=== PATIENT | female | born 1975 | race Caucasian/White ===

== ENCOUNTER 2020-10-06 13:11 | Outpatient (CLI) | payer OTHER, SELFPAY ==
--- NOTE | ~2020-10-06 | XR_ITS ---
EXAMINATION: XR chest 2V 10/06/2020 13:33 INDICATION: Cough. Covid. PROCEDURE: 2 view chest COMPARISON: 05/29/2019 FINDINGS: The lungs are clear. The cardiomediastinal silhouette is within normal limits. There are no pleural effusions. There is no pneumothorax suspected. IMPRESSION: 1: NO ACUTE CARDIOPULMONARY DISEASE. Reviewed, dictated and finalized at location A. 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
== END 2020-10-06 13:12 | disposition home or self-care (01) ==
LOC: ANHIMG 13:23
PROVIDERS: PCP Family Medicine; Visit Provider Nurse Practitioner
DX: R05 Cough (principal); Z86.16 Personal history of COVID-19
CPT/HCPCS: 71046

== ENCOUNTER 2020-10-07 17:51 | Emergency (ER) | payer OTHER, SELFPAY ==
--- NOTE | ~2020-10-07 | CT_ITS ---
EXAMINATION: CTA chest PE protocol DATE: 10/07/2020 19:19 INDICATION: Shortness of breath. Elevated d-dimer. TECHNIQUE: Computed tomography (CT) pulmonary angiogram of the chest was performed with 100 mL Omnipa que-350 intravenous contrast. Additional 3D reconstructions utilizing coronal maximum intensity proje ction (MIP) were performed. The dose-length product was 362.46 mGy-cm. COMPARISON: None FINDINGS: Excellent contrast opacification of the pulmonary arteries. No significant motion artifact. There is some streak artifact extending across the right main and right upper lobar pulmonary arteries in the immediate vicinity of the dense contrast in the superior vena cava. No pulmonary embolism identified. There are few scattered subtle groundglass opacities throughout both lungs. There is also more linea r mild discoid atelectasis in the lingula, right middle and bilateral lower lobes. No pleural effusio n or pneumothorax. Heart size is normal. Again seen is an Amplatz type atrial septal defect closure d evice in expected position at the atrial septum. No pericardial effusion. Thoracic aorta is normal in caliber with no dissection. No pathologically enlarged thoracic lymphadenopathy. Minimal thoracic sp ondylosis. IMPRESSION: 1. No pulmonary embolism. 2. A few scattered very subtle groundglass opacities throughout both lungs suspicious for COVID pneum onia. Reviewed, dictated and finalized at location A. EY DRIVER IMPRESSION: 1. No pulmonary embolism. 2. A few scattered very subtle groundglass opacities throughout both lungs susp icious for COVID pneumonia.
--- NOTE | ~2020-10-07 | XR_ITS ---
EXAMINATION: XR chest 2V DATE: 10/07/2020 18:33 INDICATION: 3 days of worsening shortness of breath TECHNIQUE: PA and lateral views of the chest were obtained. COMPARISON: Chest radiograph dated 10/06/2020 FINDINGS: The lungs remain clear with no focal airspace opacities, pulmonary edema, pleural effusion or pneumot horax. The cardiomediastinal silhouette is normal. Amplatz type atrial septal defect closure device w ith expected location and orientation. Mild thoracic and moderate upper lumbar spondylosis. Cholecyst ectomy clips in the right upper quadrant. IMPRESSION: 1. No acute cardiopulmonary disease. Reviewed, dictated and finalized at location A. CTOR PAYER
--- NOTE | 2020-10-07 17:55 | ECG_ITS ---
Measurements Intervals [place] Rate: 108 P: 72 PA: 200 QRS: 34 QRSD: 153 T: 98 QT: 371 QTc: 498 Interpretive Statements SINUS TACHYCARDIA BORDERLINE AV CONDUCTION DELAY POSSIBLE LEFT ATRIAL ENLARGEMENT LEFT BUNDLE BRANCH BLOCK BASELINE ARTIFACT- I, II, III, AVL, AVF, V6 ABNORMAL ECG Electronically Signed On 10-08-2020 7:09:47 ABE TEACHER by Fred Spring D.O.
[2020-10-07 17:56] VITALS: BP 154/101; PULSE 108; RESP 17; TEMP 36.7; O2SAT 100
[2020-10-07 17:58] VITALS: PULSE 112
[2020-10-07 17:59] VITALS: O2SAT 100
[2020-10-07 18:15] LABS: Basophils Absolute Auto 0.1 K/mm3 (0.0-0.1); Basophils Percent Auto 0.8 % (0.2-1.2); Eosinophils Absolute Auto 0.2 K/mm3 (0-0.3); Eosinophils Percent Auto 2.2 % (0-4.4); Hematocrit 44.9 % (37.0-47.0); Hemoglobin 15.9 g/dL (12.0-15.0); Immature Granulocyte Absolute 0.05 K/mm3 (0.00-0.031); Immature Granulocyte Percent A 0.6 % (0-0.5); Lymphocytes Absolute Auto 2.45 K/mm3 (0.9-3.2); Lymphocytes Percent Auto 31.8 % (18.3-44.2); Mean Corpuscular HGB Conc 35.4 g/dl (32-36); Mean Corpuscular Hemoglobin 31.2 pg (26-34); Mean Platelet Volume 10.1 fl (7.4-10.4); Monocytes Absolute Auto 0.7 K/mm3 (0.1-0.6); Monocytes Percent Auto 8.9 % (2.6-8.5); Neutrophils Absolute Auto 4.3 K/mm3 (1.3-6.7); Neutrophils Percent Auto 55.7 % (45.5-73.1); Platelet Count Result 266 k/mm3 (150-375); Red Cell Distribution Width 11.3 % (11.5-14.5); White Blood Count 7.7 K/mm3 (4.5-10.0)
--- NOTE | 2020-10-07 18:23 | ED.SOB ---
HPI - SOB/Dyspnea General Chief Complaint: Shortness of Breath/Dyspnea Stated Complaint: diff breathing Time Seen by Provider: 10/07/20 18:21 Source: patient Mode of arrival: ambulatory Limitations: no limitations History of Present Illness HPI Narrative: Patient is a 45-year-old female complain of shortness of breath that started 3 days ago. Patient states of present of breath is worse with exertion. Patient denies any chest pain abdominal pain, nausea, vomiting, diarrhea, fever or chills. Patient states she has a septal defect and has Amplatzer cribriform occluder. Patient states that she was diagnosed with Covid 2 weeks ago and was cleared yesterday. Related Data Allergies Allergy/AdvReac Type Severity Reaction Status Date / Time Penicillins Allergy Intermediate Hives / Verified 10/07/20 17:59 Red Face Review of Systems Review of Systems: All systems reviewed & are unremarkable except as noted in HPI and below Constitutional: Constitutional: Denies body ache(s), Denies chills, Denies excessive sweating, Denies fatigue, Denies fever(s), Denies headache(s), Denies lethargy, Denies malaise, Denies weakness and Denies weight loss Eyes: Eyes: Denies blurry vision, Denies change in vision and Denies loss of vision ENT: Denies dizziness, Denies ear discharge, Denies headache(s), Denies lip swelling, Denies epistaxis, Denies nasal congestion, Denies neck pain, Denies throat swelling and Denies tongue swelling Cardiovascular: Cardiovascular: Denies chest pain, Denies chest pain at rest, Denies chest pain with activity, Denies diaphoresis, Denies rapid heart rate, Denies edema, Denies irregular heart rhythm, Denies lightheadedness and Denies palpitations Respiratory: Respiratory: Denies chest congestion, Denies cough and Denies hemoptysis Gastrointestinal: Gastrointestinal: Denies abdominal pain, Denies melena, Denies hematochezia, Denies diarrhea, Denies nausea, Denies vomiting and Denies hematemesis Musculoskeletal: Musculoskeletal: Denies abnormal gait, Denies deformity, Denies joint swelling, Denies limited range of motion, Denies neck pain and Denies numbness Neurologic: Denies Abnormal speech present, Denies abnormal gait, Denies confusion, Denies dizziness, Denies headache(s), Denies focal weakness, Denies loss of vision, Denies numbness, Denies Other visual disturbances, Denies Sensory deficit (Neuro) and Denies weakness Psychiatric: Psychiatric: Denies confusion, Denies depression, Denies auditory hallucinations, Denies homicidal ideation and Denies suicidal ideation Endocrine: Endocrine: Denies cold intolerance, Denies excessive sweating, Denies fatigue, Denies heat intolerance and Denies palpitations Hematologic/Lymphatic: Hematologic/Lymphatic: Denies easy bleeding and Denies easy bruising Allergic/Immunologic: Allergic/Immunologic: Denies lip swelling, Denies throat swelling and Denies tongue swelling PMFSH Past Medical History Medical History Bipolar disorder with depression Bipolar disorder, unspecified Essential (primary) hypertension Insomnia related to another mental disorder Other and unspecified hyperlipidemia Surgical History Surgical History H/O atrial septal defect repair (~2012) S/P ACL repair (~2013) left: meniscus and ACL repair S/P appendectomy (~2013) S/P cataract extraction (~2019) S/P cholecystectomy (~2009) S/P hysterectomy (~2006) Status post ORIF of fracture of ankle (~2016) Family History Family History Mother Hypertension Grandparent Family history of congestive heart failure Family history of hypercholesterolemia Social History Social History Smoking status: Never smoker Second hand tobacco smoke exposure: No Substance use: never Gender identity (if verbaliz
[2020-10-07 18:25] LABS: Anion Gap 11 mmol/L (8-16); Blood Urea Nitrogen 13 mg/dL (7-17); Calcium 9.6 mg/dL (8.4-10.2); Carbon Dioxide 24 mmol/L (22-30); Chloride 105 mmol/L (98-107); Estimated CRCL calculation 67 ml/min; Estimated Glomerular Filt Rate 59; Glucose 100 mg/dL (65-105); Potassium 3.5 mmol/L (3.4-5.0); Sodium 140 mmol/L (137-145)
[2020-10-07 18:46] LABS: D Dimer 0.99 ug/mL (<0.48)
[2020-10-07 18:53] LABS: NT Pro B Type Natriuretic Pept 32 PG/ML (5-100); Troponin I < 0.012 ng/mL (0.000-0.034)
[2020-10-07 19:02] VITALS: BP 132/84; PULSE 92; RESP 18; O2SAT 100
[2020-10-07 20:00] VITALS: BP 117/87; PULSE 94; RESP 14; O2SAT 100
[2020-10-07 21:15] VITALS: BP 125/83; PULSE 78; RESP 11; TEMP 37.2; O2SAT 100
== END 2020-10-07 21:16 | disposition home or self-care (01) ==
PROVIDERS: Emergency Provider Emergency Medicine; PCP Family Medicine
DX: U07.1 COVID-19 (principal); J12.82 Pneumonia due to coronavirus disease 2019; I10 Essential (primary) hypertension; E78.5 Hyperlipidemia, unspecified; Z98.49 Cataract extraction status, unspecified eye; R00.0 Tachycardia, unspecified; I44.7 Left bundle-branch block, unspecified; R94.31 Abnormal electrocardiogram [ECG] [EKG]
CPT/HCPCS: 36415; 71046; 71275; 80048; 83880; 84484; 85025; 85380; 93005; 96374; 99284; J1100; Q9967

== ENCOUNTER → 2022-05-29 09:57 | Outpatient (CLI) | payer BC, SELFPAY ==
--- NOTE | ~2022-05-29 | XR_ITS ---
EXAMINATION: XR knee RT 2V DATE: 05/29/2022 10:10 INDICATION: Right knee pain. TECHNIQUE: 2 views of right knee were obtained. COMPARISON: None. FINDINGS: Bone alignment is normal. No fracture. There is mild tricompartmental osteoarthritis charac terized by tiny osteophytes. No joint space narrowing. No knee joint effusion. IMPRESSION: 1. Mild right knee osteoarthritis. Reviewed, dictated and finalized at location A.
--- NOTE | ~2022-05-29 | XR_ITS ---
EXAMINATION: HAND-CHRISTIAN ARTHRITIS 3+VIEWS DATE: 05/29/2022 10:10 INDICATION: Bilateral hand pain TECHNIQUE: Posteroanterior, lateral, and oblique views of the left and of the right hands as well as a ballcatchers view of both hands were obtained. COMPARISON: None. FINDINGS: Normal alignment at the bilateral hands and wrists. No fractures. Roughly symmetric pattern of mild t o moderate polyarticular osteoarthritis most prominent at the bilateral first carpometacarpal and sev eral distal interphalangeal joints and to a lesser degree at the metacarpophalangeal and remaining in terphalangeal joints. No erosions to suggest an inflammatory arthritis. Soft tissues are unremarkable . IMPRESSION: 1. Mild to moderate polyarticular osteoarthritis with typical distribution at the bilateral hands. Reviewed, dictated and finalized at location A. IMPRESSION: 1. Mild to moderate polyarticular osteoarthritis with typical distribution at t he bilateral hands.
== END ==
PROVIDERS: PCP Nurse Practitioner Family; Visit Provider Nurse Practitioner Family
DX: M19.041 Primary osteoarthritis, right hand (principal); M19.042 Primary osteoarthritis, left hand; M17.11 Unilateral primary osteoarthritis, right knee
CPT/HCPCS: 73130; 73560

== ENCOUNTER 2022-06-12 09:20 | Emergency (ER) | payer BC, SELFPAY ==
[2022-06-12] VITALS (14 sets, daily range): BP systolic 110–119; BP diastolic 70–83; PULSE 76–117; RESP 11–22; TEMP 36.6; O2SAT 90–98
--- NOTE | ~2022-06-12 | CT_ITS ---
EXAMINATION: CTA chest PE protocol DATE: 06/12/2022 11:14 INDICATION: Chest pain, tachycardia. Elevated d-dimer. TECHNIQUE: Computed tomography angiography (CTA) of the chest was performed with 100 mL Omnipaque-350 intravenous contrast timed to evaluate the pulmonary arteries. Coronal maximum intensity projection 3D-reconstructions were created by the technologist. Automated exposure control and iterative reconst ruction technique were employed. Exam dose: 367.52 mGy-cm total exam DLP. COMPARISON: 06/12/2022 portable AP chest 10/07/2020 CT pulmonary scan FINDINGS: There is diagnostic contrast enhancement of the pulmonary arteries and no evidence of pulmo nary embolism. No hilar or mediastinal mass lesion or lymphadenopathy. Normal heart size. No pericardial or pleural effusion. The lungs are clear of infiltrate or consolidation. Status post cholecystectomy. Stable approximately 1.4 cm hepatic cyst since 05/29/2019. Included skeletal structures are unremarkable. IMPRESSION: No evidence of pulmonary embolism Reviewed, dictated and finalized at Location A. Reviewed, dictated and finalized at location A.
--- NOTE | ~2022-06-12 | XR_ITS ---
EXAMINATION: XR chest 1V portable INDICATION: Chest pain and weakness TECHNIQUE: Portable AP chest at 1041 hours COMPARISON: 10/07/2020 FINDINGS: There is mild atelectasis of the lung bases. No pleural effusion or pneumothorax. The cardi omediastinal silhouette is normal. IMPRESSION: 1. Mild atelectasis of the lung bases. Reviewed, dictated and finalized at location B.
--- NOTE | 2022-06-12 09:26 | ECG_ITS ---
Measurements Intervals [place] Rate: 119 P: 58 MT: 184 QRS: -17 QRSD: 152 T: 99 QT: 347 QTc: 489 Interpretive Statements SINUS TACHYCARDIA POSSIBLE LEFT ATRIAL ENLARGEMENT LEFT BUNDLE BRANCH BLOCK COMPARED TO ECG 10/07/2020 18:05:17 NO SIGNIFICANT CHANGES Electronically Signed On 06-12-2022 21:19:17 CDT by Fred Spring D.O.
--- NOTE | 2022-06-12 10:03 | ED.CHESTPAIN ---
HPI - Chest Pain General Chief Complaint: Chest Pain Stated Complaint: chest pain Time Seen by Provider: 06/12/22 09:27 Source: patient, EMS and RN notes reviewed Mode of arrival: EMS Limitations: no limitations History of Present Illness HPI narrative: This is a 46 year old female with history of Bipolar who presents for evaluation of chest pain. PAtient states she was getting ready for works when she started to feel unwell. She felt like her heart was racing and she developed chest pain across her chest. She took additional metoprol to see if that would help her symptoms. She states her chest pain is still present. She describes pain has warm feeling across her chest . She denies associated nausea, vomiting, or shortness of breath. She reports mild dizziness. She had history of ASD repair years ago. She has also been having uncontrollable body tremors since episode started. Related Data Home Medications Medication Instructions Recorded Confirmed aspirin 325 mg tablet 325 mg PO DAILY 12/11/20 05/29/22 Allergies Allergy/AdvReac Type Severity Reaction Status Date / Time Penicillins Allergy Intermediate Hives / Verified 06/12/22 09:38 Red Face Review of Systems Review of Systems: All systems reviewed & are unremarkable except as noted in HPI and below Constitutional: Constitutional: Denies chills, Reports fatigue and Denies fever(s) ENT: Denies nasal congestion and Denies sore throat Cardiovascular: Cardiovascular: Reports chest pain and Reports rapid heart rate Respiratory: Respiratory: Denies chest congestion, Denies cough, Denies dyspnea and Denies wheezing Gastrointestinal: Gastrointestinal: Denies abdominal pain, Denies bloating, Denies nausea and Denies vomiting Psychiatric: Psychiatric: Denies anxiety and Denies depression [facility] Past Medical History Medical History (Updated 06/12/22 @ 14:00 by Ban Reagan MD) Anxiety Bipolar disorder with depression Essential (primary) hypertension History of COVID-19 Insomnia related to another mental disorder Other and unspecified hyperlipidemia Pneumonia due to 2019 novel coronavirus Right knee pain Surgical History Surgical History H/O atrial septal defect repair (~2012) History of surgical removal of 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 (~11/2021) S/P ACL repair (~2013) left: meniscus and ACL repair S/P appendectomy (~2013) S/P cataract extraction (~2019) S/P cholecystectomy (~2009) S/P hysterectomy (~2006) Status post ORIF of fracture of ankle (~2016) Family History Family History Mother Hypertension Grandparent Family history of congestive heart failure Family history of hypercholesterolemia Grandparent Rheumatoid arthritis Social History Social History (Updated 05/29/22 @ 09:32 by Winnie Cuevas) Social History: Caffeine- daily Smoking status: Never smoker Second hand tobacco smoke exposure: No Alcohol intake: never Substance use: never Gender identity (if verbalized by the patient): Female Exam Const: General: alert Orientation/consciousness: patient oriented x3 Other: Tremulous, anxious HENMT: Head: normal to inspection Face and sinus: normal facial exam Mouth: Yes Normal oral and palatal mucosa present Throat: posterior oropharynx normal Eyes: EOM: EOMs intact bilaterally Chest: Chest palpation & inspection: normal inspection of the chest Resp: Effort & Inspection: normal respiratory effort Auscultation: clear to auscultation bilaterally Cardio: Rate: tachycardic Rhythm: regular rhythm Heart sounds: no murmurs GI: GI Palp: Yes Soft to palpation, No Tenderness to palpation present (GI), No Guarding due to palpation present (GI) and No Rigid due to palpation Auscultation: normal bowel sounds Skin: General skin exam: normal color Neuro: General: patient oriented x3, m
[2022-06-12] MEDS: diazePAM INJ (*CRX) 10 MG/2 ML SYRINGE 5 MG IV PUSH (10:14)
[2022-06-12 10:17] LABS: Basophils Absolute Auto 0.1 K/mm3 (0.0-0.1); Eosinophils Absolute Auto 0.2 K/mm3 (0-0.3); Eosinophils Percent Auto 2.4 % (0-4.4); Hematocrit 42.9 % (37.0-47.0); Hemoglobin 14.8 g/dL (12.0-15.0); Immature Granulocyte Absolute 0.02 K/mm3 (0.00-0.031); Immature Granulocyte Percent A 0.3 % (0-0.5); Lymphocytes Absolute Auto 1.27 K/mm3 (0.9-3.2); Lymphocytes Percent Auto 20.7 % (18.3-44.2); Mean Corpuscular HGB Conc 34.5 g/dl (32-36); Mean Corpuscular Volume 89.7 fl (80-100); Mean Platelet Volume 10.9 fl (7.4-10.4); Monocytes Absolute Auto 0.4 K/mm3 (0.1-0.6); Monocytes Percent Auto 6.3 % (2.6-8.5); Neutrophils Absolute Auto 4.3 K/mm3 (1.3-6.7); Neutrophils Percent Auto 69.3 % (45.5-73.1); Platelet Count Result 195 k/mm3 (150-375); Red Blood Count 4.78 M/mm3 (4.2-5.4); Red Cell Distribution Width 12.2 % (11.5-14.5); White Blood Count 6.2 K/mm3 (4.5-10.0)
--- NOTE | 2022-06-12 10:20 | PC.NURSE ---
patient took aspirin prior to arrival. aware, OK to cancel protocol ASA
[2022-06-12 10:28] LABS: Alanine Aminotransferase 22 U/L (6-35); Albumin Level 4.6 g/dL (3.5-5.1); Alkaline Phosphatase 63 U/L (38-126); Anion Gap 15 mmol/L (8-16); Aspartate Amino Transferase 24 U/L (14-36); Bilirubin,Total 0.3 mg/dL (0.2-1.3); Blood Urea Nitrogen 10 mg/dL (7-17); Calcium 8.8 mg/dL (8.4-10.2); Carbon Dioxide 18 mmol/L (22-30); Chloride 105 mmol/L (98-107); Estimated CRCL calculation 66 ml/min; Estimated Glomerular Filt Rate 59; Glucose 105 mg/dL (65-110); Lipase 79 U/L (23-300); Potassium 3.6 mmol/L (3.4-5.0); Sodium 138 mmol/L (137-145)
[2022-06-12 10:30] LABS: Prothrombin Time 12.6 Seconds (11.1-14.7)
[2022-06-12 10:31] LABS: Partial Thromboplastin Time 29.2 SECONDS (22.3-36.8)
[2022-06-12 10:40] LABS: Troponin I < 0.012 ng/mL (0.000-0.034)
[2022-06-12 10:52] LABS: D Dimer 0.92 ug/mL (<0.48)
--- NOTE | 2022-06-12 11:12 | PC.NURSE ---
Pt off floor to radiology.
[2022-06-12 11:17] LABS: Creatine Kinase 100 U/L (30-135); Magnesium 1.8 mg/dL (1.6-2.3)
[2022-06-12 13:09] LABS: Troponin I 0.014 ng/mL (0.000-0.034)
== END 2022-06-12 14:16 | disposition home or self-care (01) ==
PROVIDERS: Emergency Provider General Practice; PCP Nurse Practitioner Family
DX: R07.9 Chest pain, unspecified (principal); R00.0 Tachycardia, unspecified; I10 Essential (primary) hypertension; E78.5 Hyperlipidemia, unspecified; Z98.49 Cataract extraction status, unspecified eye; Z90.710 Acquired absence of both cervix and uterus; Z85.828 Personal history of other malignant neoplasm of skin; Z87.01 Personal history of pneumonia (recurrent); Z86.16 Personal history of COVID-19; Z79.82 Long term (current) use of aspirin; F31.9 Bipolar disorder, unspecified; F41.9 Anxiety disorder, unspecified; F51.05 Insomnia due to other mental disorder
CPT/HCPCS: 36415; 71045; 71275; 80053; 82550; 83690; 83735; 84484; 85025; 85380; 85610; 85730; 93005; 96374; 99284; J3360; Q9967

== ENCOUNTER 2023-07-27 08:51 | Outpatient (CLI) | payer BC, SELFPAY ==
[2023-07-27 18:33] LABS: Alanine Aminotransferase 33 U/L (6-35); Albumin Level 4.3 g/dL (3.5-5.1); Alkaline Phosphatase 64 U/L (38-126); Anion Gap 6 mmol/L (8-16); Aspartate Amino Transferase 42 U/L (14-36); Bilirubin,Total 0.6 mg/dL (0.2-1.3); Blood Urea Nitrogen 16 mg/dL (7-17); Carbon Dioxide 28 mmol/L (22-30); Chloride 104 mmol/L (98-107); Cholesterol 190 mg/dL (0-200); Estimated Glomerular Filt Rate 59; Glucose 99 mg/dL (65-110); HDL Direct 47 mg/dL; Sodium 138 mmol/L (137-145); Triglycerides 150 mg/dL (<150)
[2023-07-27 18:44] LABS: LDL Cholesterol Direct 90 mg/dL
[2023-07-27 19:12] LABS: Basophils Percent Auto 0.7 % (0.2-1.2); Eosinophils Absolute Auto 0.2 K/mm3 (0-0.3); Eosinophils Percent Auto 3.1 % (0-4.4); Hematocrit 45.4 % (37.0-47.0); Immature Granulocyte Absolute 0.01 K/mm3 (0.00-0.031); Immature Granulocyte Percent A 0.2 % (0-0.5); Lymphocytes Percent Auto 34.6 % (18.3-44.2); Mean Corpuscular Hemoglobin 31.6 pg (26-34); Mean Corpuscular Volume 95.8 fl (80-100); Mean Platelet Volume 10.9 fl (7.4-10.4); Monocytes Absolute Auto 0.2 K/mm3 (0.1-0.6); Monocytes Percent Auto 4.4 % (2.6-8.5); Neutrophils Absolute Auto 3.1 K/mm3 (1.3-6.7); Platelet Count Result 233 k/mm3 (150-375); Red Blood Count 4.74 M/mm3 (4.2-5.4); Red Cell Distribution Width 12.2 % (11.5-14.5); White Blood Count 5.5 K/mm3 (4.5-10.0)
[2023-07-27 20:17] LABS: Hemoglobin A1C 4.9 % (<5.7)
== END 2023-07-27 08:52 | disposition home or self-care (01) ==
LOC: ANHGOSHLAB 08:53
PROVIDERS: PCP Family Medicine; Visit Provider Nurse Practitioner Family
DX: Z00.00 Encounter for general adult medical examination without abnormal findings (principal); I10 Essential (primary) hypertension; Z13.29 Encounter for screening for other suspected endocrine disorder; Z13.220 Encounter for screening for lipoid disorders; Z13.1 Encounter for screening for diabetes mellitus
CPT/HCPCS: 36415; 80053; 80061; 83036; 84443; 85025

== ENCOUNTER 2023-10-19 10:57 | Outpatient (CLI) | payer BC, SELFPAY ==
[2023-10-19 14:59] LABS: Influenza A QL RT-PCR Positive (Negative); Influenza B QL RT-PCR Negative (Negative); RSV RNA, RT-PCR Negative (Negative); SARS-CoV-2 RNA PCR Negative (Negative)
[2023-10-19 15:20] LABS: Strep Group A RT-PCR NOT DETECTED (Negative)
== END 2023-10-19 10:58 | disposition home or self-care (01) ==
LOC: ANHGOSHLAB 10:58
PROVIDERS: PCP Family Medicine; Visit Provider Nurse Practitioner Family
DX: R69 Illness, unspecified (principal); Z20.822 Contact with and (suspected) exposure to COVID-19
CPT/HCPCS: 87637; 87651

== ENCOUNTER → 2023-10-27 16:20 | Outpatient (CLI) | payer BC, SELFPAY ==
--- NOTE | ~2023-10-27 | XR_ITS ---
EXAMINATION: XR hand RT 2V, XR hand LT 2V DATE: 10/27/2023 16:31 INDICATION: Polyarthralgia the bilateral hands TECHNIQUE: 1. Posteroanterior and lateral views of the left hand were obtained. 2. Posteroanterior and lateral views of the right hand were obtained. COMPARISON: None. FINDINGS: Normal alignment at the bilateral hands and wrists. No fractures. Polyarticular osteoarthritis at the bilateral hands, severe at the left second and third distal interphalangeal joints, moderate severit y at the left fourth and fifth and right second and third distal interphalangeal joints and at the ri ght first carpometacarpal joint and mild at the left first carpometacarpal, remaining bilateral inter phalangeal joints and many of the bilateral metacarpophalangeal joints. No erosions to suggest inflam matory arthritis. Soft tissues are unremarkable. IMPRESSION: 1. Relatively symmetric pattern of polyarticular osteoarthritis at the bilateral hands, moderate to s evere at the bilateral distal interphalangeal joints. Reviewed, dictated and finalized at location A. MACHINE OPERATOR IMPRESSION: 1. Relatively symmetric pattern of polyarticular osteoarthritis at the bilatera l hands, moderate to severe at the bilateral distal interphalangeal joints.
== END ==
PROVIDERS: PCP Nurse Practitioner Family; Visit Provider Physician Assistant Medical
DX: M19.041 Primary osteoarthritis, right hand (principal); M19.042 Primary osteoarthritis, left hand
CPT/HCPCS: 73120

== ENCOUNTER 2024-01-06 11:22 | Outpatient (CLI) | payer BC, SELFPAY ==
[2024-01-06 12:10] LABS: Basophils Absolute Auto 0.1 K/mm3 (0.0-0.1); Basophils Percent Auto 1.3 % (0.2-1.2); Eosinophils Absolute Auto 0.2 K/mm3 (0-0.3); Eosinophils Percent Auto 3.3 % (0-4.4); Hematocrit 47.7 % (37.0-47.0); Hemoglobin 15.6 g/dL (12.0-15.0); Immature Granulocyte Absolute 0.02 K/mm3 (0.00-0.031); Immature Granulocyte Percent A 0.4 % (0-0.5); Lymphocytes Absolute Auto 1.42 K/mm3 (0.9-3.2); Lymphocytes Percent Auto 25.7 % (18.3-44.2); Mean Corpuscular HGB Conc 32.7 g/dl (32-36); Mean Corpuscular Hemoglobin 30.7 pg (26-34); Mean Corpuscular Volume 93.9 fl (80-100); Mean Platelet Volume 10.6 fl (7.4-10.4); Monocytes Absolute Auto 0.4 K/mm3 (0.1-0.6); Monocytes Percent Auto 7.8 % (2.6-8.5); Neutrophils Absolute Auto 3.4 K/mm3 (1.3-6.7); Neutrophils Percent Auto 61.5 % (45.5-73.1); Platelet Count Result 210 k/mm3 (150-375); Red Blood Count 5.08 M/mm3 (4.2-5.4); Red Cell Distribution Width 12.1 % (11.5-14.5); White Blood Count 5.5 K/mm3 (4.5-10.0)
[2024-01-06 17:56] LABS: Vitamin D 25 Hydroxy 37.4 ng/mL
[2024-01-06 20:10] LABS: Alanine Aminotransferase 29 U/L (6-35); Albumin Level 4.7 g/dL (3.5-5.1); Alkaline Phosphatase 71 U/L (38-126); Anion Gap 9 mmol/L (4-12); Aspartate Amino Transferase 45 U/L (14-36); Bilirubin,Total 0.7 mg/dL (0.2-1.3); Blood Urea Nitrogen 16 mg/dL (7-17); Calcium 9.6 mg/dL (8.4-10.2); Carbon Dioxide 24 mmol/L (22-30); Chloride 106 mmol/L (98-107); Cholesterol 252 mg/dL (0-200); Estimated Glomerular Filt Rate 59; Glucose 107 mg/dL (65-110); HDL Direct 58 mg/dL; Sodium 139 mmol/L (137-145); Triglycerides 140 mg/dL (<150)
[2024-01-06 20:23] LABS: LDL Cholesterol Direct 153 mg/dL
[2024-01-06 22:24] LABS: Hemoglobin A1C 4.9 % (<5.7)
== END 2024-01-06 11:23 | disposition home or self-care (01) ==
LOC: ANHGOSHLAB 11:23
PROVIDERS: PCP Nurse Practitioner Family; Visit Provider Nurse Practitioner Family
DX: E53.8 Deficiency of other specified B group vitamins (principal); F31.9 Bipolar disorder, unspecified; I10 Essential (primary) hypertension; M79.641 Pain in right hand; M79.642 Pain in left hand; R20.0 Anesthesia of skin; R20.2 Paresthesia of skin; R20.9 Unspecified disturbances of skin sensation; Z13.29 Encounter for screening for other suspected endocrine disorder; E55.9 Vitamin D deficiency, unspecified; Z00.00 Encounter for general adult medical examination without abnormal findings; E78.5 Hyperlipidemia, unspecified; R73.03 Prediabetes
CPT/HCPCS: 36415; 80053; 80061; 82306; 82607; 83036; 84443; 85025

== ENCOUNTER 2024-02-22 12:30 | Outpatient (CLI) | payer BC, SELFPAY ==
--- NOTE | 2024-02-22 14:00 | NEURO_ITS ---
Impression: # Complains of numbness of right hand. Non-diabetic. # Right ulnar neuropathy across the elbow,of moderate degree. # No Carpal Tunnel Syndrome. # Needle/EMG exam mildly abnormal,in abductor digiti minimi. Nerve Conduction Studies Anti Sensory Summary Table Stim Site NR Peak (ms) P-T Amp (?V) Site1 Site2 Delta-P (ms) Dist (cm) Jake (m/s) Left Median Anti Sensory (2-3nd Digit) Wrist 2.8 59.6 Wrist 2-3nd Digit 2.8 14.0 50 Wrist 2.8 63.4 Wrist 2-3nd Digit 2.8 14.0 50 Right Median Anti Sensory (2-3nd Digit) Wrist 2.6 56.5 Wrist 2-3nd Digit 2.6 14.0 54 Wrist 2.5 77.4 Wrist 2-3nd Digit 2.6 14.0 54 Left Radial Anti Sensory (Base 1st Digit) Wrist 2.2 32.0 Wrist Base 1st Digit 2.2 0.0 Right Radial Anti Sensory (Base 1st Digit) Wrist 2.6 28.4 Wrist Base 1st Digit 2.6 0.0 Left Ulnar Anti Sensory (5th Digit) Wrist 2.6 43.9 Wrist 5th Digit 2.6 14.0 54 Right Ulnar Anti Sensory (5th Digit) Wrist 2.3 79.9 Wrist 5th Digit 2.3 14.0 61 Motor Summary Table Stim Site NR Onset (ms) O-P Amp (mV) Site1 Site2 Delta-0 (ms) Dist (cm) Jake (m/s) Left Median Motor (Abd Poll Brev) Wrist 2.4 7.3 Elbow Wrist 5.3 31.0 58 Elbow 7.7 4.0 Right Median Motor (Abd Poll Brev) Wrist 2.5 4.6 Elbow Wrist 4.9 26.0 53 Elbow 7.4 4.2 Left Ulnar Motor (Abd Dig Minimi) Wrist 2.2 7.7 A Elbow Wrist 4.8 28.0 58 A Elbow 7.0 6.4 Right Ulnar Motor (Abd Dig Minimi) Wrist 2.5 6.6 A Elbow Wrist 5.9 27.0 46 A Elbow 8.4 4.4 B Elbow Wrist 3.4 20.0 59 B Elbow 5.9 4.9 F Wave Studies NR F-Lat (ms) L-R F-Lat (ms) Left Median (Mrkrs) (Abd Poll Brev) 27.29 0.41 Right Median (Mrkrs) (Abd Poll Brev) 26.89 0.41 Left Ulnar (Mrkrs) (Abd Dig Min) 27.60 0.10 Right Ulnar (Mrkrs) (Abd Dig Min) 27.70 0.10 EMG Side Muscle Nerve Root Ins Act Fibs Amp Dur Recrt Comment Right 1stDorInt Ulnar C8-T1 Nml Nml Nml >12ms +1 Right Ext Indicis Radial (Post Int) C7-8 Nml Nml Nml Nml Nml Right Ext Digitorum Radial (Post Int) C7-8 Nml Nml Nml Nml Nml Right BrachioRad Radial C5-6 Nml Nml Nml Nml Nml Right PronatorTeres Median C6-7 Nml Nml Nml Nml Nml Right Abd Poll Brev Median C8-T1 Nml Nml Nml Nml Nml Right ABD Dig Min Ulnar C8-T1 Nml Nml Nml >12ms +1 Left 1stDorInt Ulnar C8-T1 Nml Nml Nml Nml Nml Left Ext Indicis Radial (Post Int) C7-8 Nml Nml Nml Nml Nml Left Ext Digitorum Radial (Post Int) C7-8 Nml Nml Nml Nml Nml Left BrachioRad Radial C5-6 Nml Nml Nml Nml Nml Left PronatorTeres Median C6-7 Nml Nml Nml Nml Nml Left Abd Poll Brev Median C8-T1 Nml Nml Nml Nml Nml Left ABD Dig Min Ulnar C8-T1 Nml Nml Nml Nml Nml MTDD
== END 2024-02-22 12:31 | disposition home or self-care (01) ==
LOC: ANHNEURO 12:31
PROVIDERS: PCP Nurse Practitioner Family; Visit Provider Nurse Practitioner Family
DX: G56.21 Lesion of ulnar nerve, right upper limb (principal); M79.642 Pain in left hand; R20.9 Unspecified disturbances of skin sensation
CPT/HCPCS: 95886; 95911

== ENCOUNTER 2024-04-26 00:56 | Day surgery (SDC) | payer BC, SELFPAY ==
[2024-04-20 13:38] VITALS: BMI 29.9
--- NOTE | 2024-04-20 13:38 | PC.NURSE ---
Addendum entered by Brian Rios RN 04/20/24 13:51: Please inquire of Dr Gonzales's office if Aspirin ok to take prior to surgery. Original Note: Report to the Outpatient Waiting Room, entrance under the green pavilion located off [facility], at time _1245_ on date _[id number]_. Planned Procedure Time: _245pm_. Time changes happen often and if your time is changed the preop area will call you the afternoon before. - You and your visitor will be asked to self-screen and do not enter if you have any COVID symptoms. - A mask is optional within the hospital at this time. May have clear liquids (water, carbonated beverages, clear teas, apple juice) with a maximum of 20 ounces until 645am then nothing to drink until after surgery - No food from midnight until time of surgery Take the following medications with a SIP of water the morning of surgery: ____Desvenlafaxine and Metoprolol DO NOT STOP ANY OF YOUR OTHER PRESCRIPTION MEDICATIONS PRIOR TO SURGERY ?EXCEPT THE FOLLOWING Medications to discontinue per physician Multivitamin Date to take last [id number] Please no make-up, nail albanian, hairspray, perfume, deodorant, or body powder the day of surgery. No jewelry (including any body piercings) or valuables the day of surgery, leave them at home. Please take a shower or bath the night before, or the morning of, surgery with an antibacterial soap. Wear comfortable, loose fitting clothing. - Jewelry must be removed prior to entering the operating room. Rings and piercings that are not removed may be cut off. - The hospital will not accept responsibility for valuables. - Please leave all valuables, including medications, at home the day of surgery. If you are going home after surgery, a licensed bung driver must drive you home. - NO public transportation without another adult if you receive anesthesia. - We recommend that an adult stay with you for 24 hours following discharge. - We also recommend that you do not drive, make important decision, drink alcoholic beverages, or take any drugs that were not prescribed by your health care provider for at least 24 hours after your discharge time. Follow any additional instructions given to you from your surgeon. If you or anyone in your household have experienced Covid symptoms in the past week, please notify your surgeon or the nurse liaison at the phone number below for possible testing. Telephone instructions given to __Tina___and asked if any additional questions and then verbalized understanding. Patient advised to call surgeon office or pre surgery nurse liaison [phone] if any additional questions.
--- NOTE | 2024-04-26 06:59 | PM.HPGS ---
History of Present Illness History of Present Illness Chief complaint: lesion right ulnar nerve Narrative: Patient seen and examined in pre-operative holding area. No interval change in medical history or symptoms. Patient recalls previous discussion of benefits and alternatives to procedure. Continues to desire to proceed with right cubital tunnel release. Reviewed procedure, post-op expectations and risks including but not limited to bleeding, infection, injury to tendon/nerve/vessel, decreased hand function, stiffness, RSD, no change or worsening of symptoms. I discussed the possible use of assistants and their participation in the case. Patient stated understanding and signed the consent form wishing to proceed. 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 amish (~11/2021) S/P ACL repair (~2013) left: meniscus and ACL repair S/P appendectomy (~2013) S/P cataract extraction (~2019) S/P cholecystectomy (~2009) S/P hysterectomy (~2006) supracervical Status post ORIF of fracture of ankle (~2016) Family History Family History Mother Hypertension TIA (transient ischemic attack) Thyroid disease Grandparent Family history of congestive heart failure Family history of hypercholesterolemia Grandparent Rheumatoid arthritis Social History Social History Social History: Caffeine- daily Smoking status: Never smoker Second hand tobacco smoke exposure: No Alcohol intake: current Drinks per week: 2 Alcohol use details: occasional Substance use: current Substance use type: marijuana Last use: pt has medical card Do You Feel Safe in your Home?: Yes Lack of Transportation: No Lack of Food: Never True Current Housing: I Have Housing Concerned About Future Housing: No Difficulty Paying Gas/Electric Bills: No Difficulty Paying for Meds: No Currently Unemployed: No Education: High School Diploma/GED Difficulty w/ Childcare or Family Care: No Living arrangements: with family Occupation/Education: occupation Gender identity (if verbalized by the patient): Female Sexual Orientation (if Verbalized by the Patient): Straight or Heterosexual Spiritual care concerns: No Agree to blood products: Yes Meds Home Medications and Allergies Home Medications Medication Instructions Recorded Confirmed Type aspirin 325 mg tablet 325 mg PO DAILY 12/11/20 04/20/24 History multivitamin (One Daily 1 tablet PO DAILY 07/28/23 04/20/24 History Multivitamin tablet) metoprolol succinate 50 mg See Rx Instructions .Route 11/08/23 04/20/24 Rx tablet,extended release 24 hr .COMPLEX #90 tabs lamotrigine 200 mg tablet See Rx Instructions .Route 11/22/23 04/20/24 Rx .COMPLEX #225 tabs quetiapine 300 mg tablet 300 mg PO BID #90 tabs 01/06/24 04/20/24 Rx desvenlafaxine succinate 100 mg 100 mg PO DAILY #90 tabs 02/22/24 04/20/24 Rx tablet,extended release 24 hr zolpidem 10 mg tablet 10 mg PO DAILY #90 tabs 03/27/24 04/20/24 Rx diazepam 2 mg tablet 2 mg PO DAILY #30 tabs 03/31/24 04/20/24 Rx tramadol 50 mg tablet 50 mg PO Q6H PRN pain #12 tabs 04/26/24 Rx Allergies Allergy/AdvReac Type Severity Reaction Status Date / Time Penicillins Allergy
--- NOTE | 2024-04-26 07:00 | W.PM.PROC2 ---
Procedure Note - Detailed Date of Procedure 04/26/24 Pre-op Diagnosis right CuTS Post-op Diagnosis Same Procedure Performed right CuTR Surgeon Ulysses Gonzales MD Anesthesia MAC Description of Procedure INFORMED CONSENT:The patient was seen and examined and marked in the pre-op area.? The patient signed the consent form. PROCEDURE IN DETAIL: The patient taken back to OR on the stretcher in supine position. Time out performed with anesthesia, surgeon and staff agreeing on patient's name site and surgery to be performed SCDs were placed on the lower extremities and inflated A tourniquet was placed on {right} upper extremity and antibiotics given IV After anesthesia administered sedation I injected {10}cc 1%lido with epi and 0.5% marcaine plain at the operative site The?{right upper extremity}?was prepped and draped in sterile fashion the??{right upper extremity} was??exsanguinated with Esmarch bandage and tourniquet inflated to 250mmHg I next proceeded with making a longitudinal incision between two heads for flexor carpi ulnaris at end of {right} cubital tunnel with 15 blade scalpel.? Littler scissors were used to spread down to FCU fascia.? An incision was made in FCU fascia and ulnar nerve identified exiting cubital tunnel.? I proceeded with complete retrograde release of the cubital tunnel including 7cm proximal for the intermuscular septum.? The nerve appeared healthy with visible vaso nervorum.? There was no subluxation on full elbow range of motion. ? I irrigated with normal saline and closure with 4-0 monocryl for dermis and subcuticular. The incision was covered with Dermabond then 4x4s, raymundo, and a posterior elbow splint for patient safety, security and comfort and secured with naren bandages after the tourniquet was let down noting the hand was warm and well perfused.? Patient awaken from anesthesia and transferred to recovery in stable condition Complications - none EBL- 1cc Disposition - home in stable conditions [facility] Billing Surgery - Charge Forward: Surgery Billing ([id number] )
[2024-04-26] MEDS: LIDO 1%/EPINEPHRINE 1:100,000 20 ML VIAL 10 ML INFILTRATE (10:16)
--- NOTE | 2024-04-26 13:07 | WPDANESEPPF ---
Anes - Initial Pre Proc Eval Procedure: Operation Date: 04/26/24 14:45 Proposed Procedures p Right Cubital Tunnel Release - Ulysses Gonzales MD Date/Time: 04/26/24 13:07 Surgeon: Ulysses Gonzales MD Pre Op Diagnosis: lesion right ulnar nerve Patient Data Age: 48 Gender: F Height: 1.68 m Weight: 84 kg Allergies Allergy/AdvReac Type Severity Reaction Status Date / Time Penicillins Allergy Intermediate Hives / Verified 04/20/24 13:30 Red Face Home Medications Medication Instructions Recorded Confirmed Type aspirin 325 mg tablet 325 mg PO DAILY 12/11/20 04/20/24 History multivitamin (One Daily 1 tablet PO DAILY 07/28/23 04/20/24 History Multivitamin tablet) metoprolol succinate 50 mg See Rx Instructions .Route 11/08/23 04/20/24 Rx tablet,extended release 24 hr .COMPLEX #90 tabs lamotrigine 200 mg tablet See Rx Instructions .Route 11/22/23 04/20/24 Rx .COMPLEX #225 tabs quetiapine 300 mg tablet 300 mg PO BID #90 tabs 01/06/24 04/20/24 Rx desvenlafaxine succinate 100 mg 100 mg PO DAILY #90 tabs 02/22/24 04/20/24 Rx tablet,extended release 24 hr zolpidem 10 mg tablet 10 mg PO DAILY #90 tabs 03/27/24 04/20/24 Rx diazepam 2 mg tablet 2 mg PO DAILY #30 tabs 03/31/24 04/20/24 Rx tramadol 50 mg tablet 50 mg PO Q6H PRN pain #12 tabs 04/26/24 Rx Patient hx anesthesia problems: none Family hx anesthesia problems: none Results Review: All pre-operative results and documents have been reviewed as part of the pre-operative evaluation. [facility] Past Medical History Medical History Anxiety Bipolar disorder with depression Essential (primary) hypertension History of COVID-19 Illness Insomnia related to another mental disorder Numbness and tingling Other and unspecified hyperlipidemia Pneumonia due to 2019 novel coronavirus Right knee pain Ulnar nerve compression Surgical History Surgical History H/O atrial septal defect repair (~2012) History of surgical removal of squamous cell carcinoma of skin of right yarsani (~11/2021) S/P ACL repair (~2013) left: meniscus and ACL repair S/P appendectomy (~2013) S/P cataract extraction (~2019) S/P cholecystectomy (~2009) S/P hysterectomy (~2006) supracervical Status post ORIF of fracture of ankle (~2016) Family History Family History Mother Hypertension TIA (transient ischemic attack) Thyroid disease Grandparent Family history of congestive heart failure Family history of hypercholesterolemia Grandparent Rheumatoid arthritis Social History Social History Social History: Caffeine- daily Smoking status: Never smoker Second hand tobacco smoke exposure: No Alcohol intake: current Drinks per week: 2 Alcohol use details: occasional Substance use: current Substance use type: marijuana Last use: pt has medical card Do You Feel Safe in your Home?: Yes Lack of Transportation: No Lack of Food: Never True Current Housing: I Have Housing Concerned About Future Housing: No Difficulty Paying Gas/Electric Bills: No Difficulty Paying for Meds: No Currently Unemployed: No Education: High School Diploma/GED Difficulty w/ Childcare or Family Care: No Living arrangements: with family Occupation/Education: occupation Gender identity (if verbalized by the patient): Female Sexual Orientation (if Verbalized by the Patient): Straight or Heterosexual Spiritual care concerns: No Agree to blood products: Yes Anes - Eval Final PreProcedure Day of Procedure 04/26/24 13:07 Patient weight: overweight Heart: regular rate and rhythm Lungs: clear to auscultation Airway: Mallampati scale class II Neurological: alert and oriented Last oral intake: >/= 8 hours ASA classification: II Emerge
[2024-04-26] MEDS: LACTATED RINGERS 1,000 ML 30 ML IV CONT (13:15)
[2024-04-26 13:38] VITALS: BP 141/79; PULSE 77; RESP 18; TEMP 36.4; O2SAT 97
[2024-04-26 14:09] VITALS: BP 122/71; PULSE 82; RESP 16
[2024-04-26 14:35] VITALS: BP 126/78; PULSE 64; RESP 16
== END 2024-04-26 15:05 | disposition home or self-care (01) ==
PROVIDERS: PCP Nurse Practitioner Family; Visit Provider Plastic Surgery
PROC: (CPT 64718; principal; 2024-04-26 14:45)
DX: G56.21 Lesion of ulnar nerve, right upper limb (principal); F31.9 Bipolar disorder, unspecified; E78.49 Other hyperlipidemia; F51.05 Insomnia due to other mental disorder; F41.9 Anxiety disorder, unspecified; Z79.82 Long term (current) use of aspirin; F12.90 Cannabis use, unspecified, uncomplicated
CPT/HCPCS: 64718; J2250; J2704; J3010; J7120

== ENCOUNTER 2024-05-25 12:19 | Outpatient (CLI) | payer BC, SELFPAY ==
--- NOTE | ~2024-05-25 | MM_ITS ---
EXAMINATION: MM screening nathan BI w jeovany HISTORY: Screening TECHNIQUE: Craniocaudal and mediolateral oblique 3-D tomosynthesis images were obtained and synthetic 2-D images were generated. CAD analysis was submitted and interpreted. COMPARISON: No prior mammogram is available for comparison at this institution. BREAST PARENCHYMAL COMPOSITION: Not dense: There are scattered areas of fibroglandular density. FINDINGS: There is no evidence of suspicious mass, calcification, or architectural distortion to sugg est malignancy in either breast. There has been no suspicious interval change. IMPRESSION: 1. No mammographic evidence of malignancy. 2. Recommend routine screening mammography in one year. BI-RADS Category 1: Negative Reviewed, dictated and finalized at location B.
== END 2024-05-25 12:20 ==
LOC: MICIMG 12:20
PROVIDERS: PCP Nurse Practitioner Family; Visit Provider Nurse Practitioner Family
DX: Z12.31 Encounter for screening mammogram for malignant neoplasm of breast (principal)
CPT/HCPCS: 77063; 77067

== ENCOUNTER 2024-11-15 12:36 | Outpatient (CLI) | payer BC, SELFPAY ==
--- OUTSIDE RECORDS SUMMARY | 2024-11-15 12:39 | XMS_ITS ---
Author Organization [facility] As [employer] [facility] Address [facility] [address] Care Team Providers Care News Anchor Name Role Phone Dara Choi Primary Care Provider Unavailab Torres Lau Unavailable [phone] Migration, Provider Unavailable Unavailable REASON FOR VISIT EMR-[facility] Medications Medication SIG (Take, Route, Frequency, Duration) Notes Start Date End Date Status GaviLyte-G 236 GM Oral *Reorder from Loop for eRx and Interaction Alerts* Active Zolpidem Tartrate 10 MG Oral Active QUEtiapine Fumarate 100 MG Oral Active Clindamycin HCl 300 MG Oral Active Metoprolol Succinate ER 50 MG Oral Active TRANSDERM-SCOP 1 MG OVER 3 DAYS TRANSDERMAL PATCH *Reorder from Loop for eRx and Interaction Alerts* Active lamoTRIgine 200 MG Oral A ctive QUEtiapine Fumarate 300 MG Oral Active Azithromycin 250 MG Oral Active Desvenlafaxine ER 100 mg Oral Active Cephalexin 500 MG Oral Ac tive Social History Sex Assigned At : Social History Observation Description Sex Assigned At Female Encounters Encounter [facility] Date [facility] [place] [address] [facility] [address] [address] 02/13/2024 Provider Migration Plan Of Treatment No Information Progress Notes * SAMANTHA OLIVAREZ:1975 ([age] yo F)Acc No.[id number]:02/13/2024 Patient: DON VALENZUELA :1975 A ge:48 Y S ex:Female Address:[address] [place] [address], [id number] Subjective: * Chief Complaints: * E MR-Vicente * Medical History: * Surgical History: * Hospitalization/Major Diagno stic Procedure: * Medications: T akingAzithromycin 250 MG Tablet Oral QUEtiapine Fumarate 100 MG Tablet Oral GaviLyte-G 236 GM Solution Reconstituted Oral , Notes to Pharmacist: *Reorder from [facility] for eRx and Interaction Alerts*Cephalexin 500 MG Capsule Oral TRANSDERM-SCOP 1 MG OVER 3 DAYS TRANSDERMAL PATCH , Notes to Pharmacist: *Reorder from [facility] for eRx and Interaction Alerts*Zolpidem Tartrate 10 MG Tablet Oral lamoTRIgine 200 MG Tablet Oral Clindamycin HCl 300 MG Capsule Oral QUEtiapine Fumarate 300 MG Tablet Oral Desvenlafaxine ER 100 mg Tablet Extended Release 24 Hour Oral Metoprolol Succinate ER 50 MG Tablet Extended Release 24 Hour Oral Taking Azithromycin 250 MG Tablet Oral Taking QUEtiapine Fumarate 100 MG Tablet Oral Taking GaviLyte-G 236 GM Solution Reconstituted Oral , Notes to Pharmacist: *Reorder from [facility] for eRx and Interaction Alerts*Taking Cephalexin 500 MG Capsule Oral Taking TRANSDERM-SCOP 1 MG OVER 3 DAYS TRANSDERMAL PATCH , Notes to Pharmacist: *Reorder from [facility] for eRx and Interaction Alerts*Taking Zolpidem Tartrate 10 MG Tablet Oral Taking lamoTRIgine 200 MG Tablet Oral Taking Clindamycin HCl 300 MG Capsule Oral Taking QUEtiapine Fumarate 300 MG Tablet Oral Taking Desvenlafaxine ER 100 mg Tablet Extended Release 24 Hour Oral Taking Metoprolol Succinate ER 50 MG Tablet Extended Release 24 Hour Oral Objective: * Vitals: * Physical Examination: Assessment: Plan: * Treatment: * Procedure Codes: * true * Date: Generated for Emilia shell/Edwin/Elias on: 0 11/15/2024 12:39 PM [employer]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
--- OUTSIDE RECORDS SUMMARY | 2024-11-15 12:39 | XMS_ITS | Data Portability ---
Author Organization [place] [facility], [facility] Address [address] [place] [place] [address] Assessment Encounter Date Assessment Date Assessment LastModified by Organization Details LastModified Time 06/03/2017 06/03/2017 Our plan is to check the x-ray now and have her follow up in two weeks to have her stitches out and perhaps a new cast or change her to other immobilization as long as she has good control of her ankle and can keep herself dorsiflexed. We're going to keep her non-weightbearing for six weeks. [email or web address] Not available 06/03/2017 13:21:20 06/22/2017 06/22/2017 This is a 41-year-old female presenting for two week followup visit status post ORIF of left trimalleolar ankle fracture on 05/30/[address] Mahajan. PLAN I had a long and thorough discussion with her regarding the extent of her injuries sustained. We reviewed the x-rays both pre and postop as well as followup in detail as well as the treatment options she receives and prognostic outcomes in detail over the next year as well as complications associated with the surgery. The patient's incision is well healed, at which point, we will take the sutures out. Steri-Strips were placed. Instructions provided that she may shower, but no baths. I discussed with her regarding the swelling that this may persist for up to a year and I advise her to wear TEDs at this time to prevent this. She is currently nonweightbearing, will remain this way at this time up until our next followup visit. At this point, I will begin physical therapy for her focusing on general and active and active assisted as well as passive range of motion as well as heel cord stretching. Home instruction were also provided with a conditioning program in detail to re-perform two to three times a week. She will continue with the Cam walker as well. She may take this off for sleep and she is currently not on any DVT prophylaxis. Therefore, I will give her Xarelto 10 mg to be taken for the next four weeks as she refuses to take Lovenox due to the injections. I am also going to place her on vitamin D2, 50,000 units one tab p.o. q. weekly for the next six weeks to help with her healing as well as bone quality. PT also add to that gait and ADLs as well as proprioception training and moderate ham and quad isometrics. I will see her back in one month's time with repeat followup x-rays and will begin to advance her weightbearing status pending progressive healing on x-rays. All questions were answered, discussed in detail with the patient and mother who verbalized clear understanding of instructions and plan at this time. [email or web address] Not available 06/23/2017 07:57:31 07/20/2017 07/20/2017 A 41-year-old female presenting for six-week followup visit status post ORIF of left trimalleolar ankle fracture on 05/30/[address] Mahajan. PLAN The patient is currently doing well today. At this time, her x-rays are healed and thus we will have her transition to begin weightbearing and transition out of the crutches. We will also have her attempt to transition out of the Cam boot. We will continue PT three times weekly, focusing on weightbearing as tolerated with range of motion as tolerated of the left ankle and begin gait and proprioception training. I also planned her with and we reviewed the home conditioning program for her ankle exercises to be performed two to three times a week along with PT. At this time, she has finished her DVT prophylaxis as well as vitamin D and again we will advance her weightbearing status. I will see her back in six weeks with followup x-rays of the left ankle and assess her progress with physical therapy. All questions were answered. I discussed in detail with the patient who verbalized clear understanding of instructions at this time. [email or web address] Not available 07/21/2017 06:49:07 Plan of Treatment Reminders Order Date Submit Date Provider Last Modified By Organization Details Last Modified Time Details Appointments None record ed. Lab None record ed. Referral None record ed. Procedures None record ed. Surgeries None record ed. Imaging None record ed. Medication Orders None record ed. Patient TargetsNo targets recorded. Patient InstructionsNo instructions recorded. Reason for Referral None Reported. Problems Name Problem SNOMED Code Status Onset Date Resolution Date Notes Provider Name and Address Organization Details Recorded Time Ankle pain 166054202 Active 2016 VALE Sandoval [facility], 7 10:37:08 Trimalleolar fracture 535419424 Active 2016 VALE Sandoval [facility], 7 13:49:24 Problem Notes None recorded. Medical Equipment None Reported. Medications Name Sig Start Date Stop Date Status Note LastModified by Organization Details LastModified Time Prescription - New active Vit D2 50,000 Xarelto 10mg Not Available Not Available Not Available amoxicillin 500 mg capsule active Not Available Not Available Not Available lamotrigine 200 mg tablet active Not Available Not Available Not Available quetiapine 300 mg tablet active Not Available Not Available Not Available ammonium lactate 12 % lotion active Not Available Not Available Not Available metoprolol succinate ER 50 mg tablet,exten ded release 24 hr active Not Available Not Available Not Available hydrocodone 5 mg-acetamino phen 325 mg tablet active Not Available Not Available Not Available mefloquine 250 mg tablet active Not Available Not Available Not Available oxycodone-ac etaminophen 5 mg-325 mg tablet Take 1 tablet every 6 hours by oral route as needed. active Not Available Not Available No t Available nitroglyceri n 0.4 mg sublingual tablet active Not Available Not Available Not Available docusate sodium 100 mg capsule TAKE ONE CAPSULE BY MOUTH TWICE A DAY active Not Available Not Available No t Available omeprazole 20 mg capsule,jenni yed release active Not Available Not Available Not Available ergocalcifer ol (vitamin D2) 1,250 mcg (50,000 unit) capsule TAKE 1 CAPSULE WEEKLY FOR 6 WEEKS 2016 active Not Available Not Available Not Avai lable Transderm-Sc op 1 mg over 3 days transdermal patch active Not Available Not Available Not Available zolpidem 10 mg tablet active Not Available Not Available No t Available amoxicillin 875 mg-potassium clavulanate 125 mg tablet active Not Available Not Available Not Available desvenlafaxi ne succinate ER 100 mg tablet,exten ded release 24 hr active Not Available Not Available Not Available Mirvaso 0.33 % topical gel with pump active Not Available Not Available Not Available Vitals Date Recorded Body height Body mass index (BMI) Body weight Body temperature Heart rate Systolic blood pressure Diastolic blood pressure Provider Name and Address Organization Details Last Updated DateTime 7 170.18 cm 26.6 kg/m2 66988.7 g 99.2 [degF] 70 /min 152 mm[Hg] 62 mm[Hg] Winnie Almeida [facility] 7 16:44:05 Date Recorded Body height Body mass index (BMI) Body weight Body temperature Heart rate Systolic blood pressure Diastolic blood pressure Provider Name and Address Organization Details Last Updated DateTime 7 170.18 cm 26.6 kg/m2 93672.7 g 97.6 [degF] 81 /min 112 mm[Hg] 70 mm[Hg] Winnie Juan Pablo [facility] 7 12:32:14 Date Recorded Body height Body temperature Heart rate Systolic blood pressure Diastolic blood pressure Provider Name and Address Organization Details Last Updated DateTime 07/20/2017 170.18 cm 99 [degF] 86 /min 118 mm[Hg] 81 mm[Hg] Winnie Juan Pablo [facility] 7 15:15:46 Social History Question Answer Notes LastModified by Organizat ion Details LastModified Time Tobacco Smoking Status Never Smoker Winnie palma [facility] 06/08/2017 16:44:24 What Was The Date Of Your Most Recent Tobacco Screening? 06/22/2017 Information n ot available 04/19/2019 Sex: Unknown Functional Status None recorded. Mental Status None recorded. Family History Nothing Reported. Medical History Condition Response Pancreatitis N HEME - Anemia N Gout N Hyperthyroidism N Rheumatoid arthritis N Irritable bowel syndrome N Osteoarthrosis N HEENT - Wears corrective lenses Y Depression Y COPD N Pneumonia N Peptic ulcer disease N History of head and neck tumor N NEURO - Cerebral palsy N Skin infection N Active aids N Mitral valve prolapse N Renal failure N HIV positive N GI - GERD N Joint injury N Hypercholesterolemia N Hypoparathyroidism N MS - Fracture N Fibromyalgia N Cerebrovascular accident N Neuromuscular disease N PSYCHE - Claustrophobia N Poliomyelitis / post polio N ENDOCRINE - Obesity N Hearing impairment N Dysvascular amputation LE N Other diagnosis N Anxiety disorder N Deformity N CHEST - Sleep apnea N Crohn's disease N Pulmonary embolism N Chronic venous stasis disease N Psychosis N Coagulopathy N Asthma N Blood clotting disorder N Cardiac valvular disease N Are you under pain mgmt treatment N Fragility fracture N Vertigo N Hepatitis N Neuropathy N Coronary artery disease N Pressure sore N Diabetes Type II (NIDDM) N Skin ulceration N Bipolar disorder Y Glaucoma N Legally blind N Hypothyroidism N Sinusitis / sinus infection N Pacemaker N Peripheral vascular disease N Cystic fibrosis N Cholecystitis N Sickle cell N VASCULAR - Deep venous thrombosis N Osteomyelitis N SKIN - Rash N INFECTIOUS - Current active infection N Heart murmur N Previous myocadial infarction N Itp / ttp N Lupus Arthritis N Congestive heart failure N Skin bruising N Diabetes Type I (IDDM) N HEART - Arrhythmia N Chemically anticoagulated N Dental caries / gingivitis N Fracture non-union N Dysvascular gangrene N - Cystitis N Renal dialysis N Dementia N Diverticulitis N Ulcerative colitis N Seizure disorder N MISC - Cancer N Organ transplant N Hypertension N Osteoporosis N Gynecological HistoryNo gynecological history recorded. Obstetrics History GPAL:G 0 P 0 0 0 0 Past Encounters Encounter ID Performer Location Encounter Start Date Encounter Closed Date Diagnosis/Indication Diagnosis SNOMED-CT Code Diagnosis ICD10 Code Diagnosis Note [id number] Winnie Almeida [address], [place] [address] [place] [address] 7 06/03/2017 09:37:53 06/03/2017 10:45:14 [id number] Janie Stapleton [facility] [address] [place] [address] 06/22/2017 08:57:09 06/22/2017 10:31:49 Trimalleolar fracture 630410982 S82.852A Ankle pain 915165708 M25 .214 [id number] Janie Stapleton [address], [place] [address] [place] [address] 7 07/20/2017 08:19:30 07/20/2017 09:07:36 Trimalleolar fracture 002614936 S82.852A Health Concerns Section Related Observation LastModified by Organization Detai ls LastModified Time None Recorded Concern Status LastModified by Organization Details LastModified Time None Recorded Advance Directives Directive None Recorded Payers Encounter Date Sequence Insurance Name Policy Number Policy Stein Covered Member ID Stein Member ID Guarantor Name 06/03/2017 1 [place] PREFERRED PRIMARY/PRIMA RY PLUS [id number] Baltazar Membreno [id number] Odette Membreno 06/22/2017 1 [place] PREFERRED PRIMARY/PRIMA RY PLUS [id number] Baltazar Membreno [id number] Odette Membreno 07/20/2017 1 [place] PREFERRED PRIMARY/PRIMA RY PLUS [id number] Baltazar Membreno [id number] Odette Membreno Notes Date Note Type Note Provider Name and Address Organization Details Recorded Time 06/03/2017 text/html S/P ORIF left ankle of her left lakisha on May. She comes in for a wound check. VALE Sandoval - [facility], 06/08/2017 16:44:54 06/22/2017 text/html This is a very pleasant 41-year-old female presenting for two-week followup visit status post ORIF of the left trimalleolar ankle fracture by Dr. Mahajan back on 05/30/2017. The patient states she is doing well today. She complains of pain located into the left ankle. Denies numbness, tingling or loss of sensation. VALE Kim [facility] 06/23/2017 08:45:49 07/20/2017 text/html This is a very pleasant 41-year-old female presenting for six-week followup visit status post ORIF of left trimalleolar ankle fracture by Dr. Mahajan back on 05/30/2017. The patient is doing well today. She has very minimal pain located in the left ankle. Denies numbness, tingling or loss of sensation. She is currently waiting to get rid of her crutches. She states they are very cumbersome at this time. VALE Kim [facility], 07/21/2017 08:20:04 OBGyn Episode No OBEpisode recorded.
--- OUTSIDE RECORDS SUMMARY | 2024-11-15 12:39 | XMS_ITS ---
Author Organization [facility] [employer] [facility] Address [address] [place] [address] Care Team Providers Care Steel Melter Name Role Phone Dara Choi Primary Care Provider Unavailab Torres Lau Unavailable [phone] Migration, Provider Unavailable Unavailable REASON FOR VISIT [facility] Social History Sex Assigned At : Social History Observation Description Sex Assigned At Female Encounters Encounter Location Date Provider Diagnosis [facility] globa.ly [facility] [address] [place] [address] 02/12/2024 Provider Migration Plan Of Treatment No Information Progress Notes * ETHAN OLIVAREZB:1975 (3 0 yo F)Acc No.[id number]:02/12/2024 Patient: DON VALENZUELA :1975 A ge:48 Y S ex:Female Address:[address] [place] [address], [id number] Subjective: * Chief Complaints: * E MR-Vicente * Medical History: * Surgical History: * Hospitalization/Major Diagno stic Procedure: * Medications: Objective: * Vitals: * Physical Examination: Assessment: Plan: * Treatment: * Procedure Codes: * true * Date: Generated for Printi ng/Faxing/eTransmitting on: 0 11/15/2024 12:39 PM ULTRASOUND TECHNOL
--- OUTSIDE RECORDS SUMMARY | 2024-11-15 12:39 | XMS_ITS | Clinical Summary ---
Author Organization [facility] [address] [facility] [address] Address [address] [place] [address] Care Team Providers Care Load Test Mechanic Name Role Phone Violeta William NP Primary Care Provider + Satish Rush MD Unavailable Allergies No known active allergies Medications QUEtiapine (SEROquel) 300 mg tablet 2 tablets (600 mg total) 08/14/2023 Active lamoTRIgine (LaMICtal) 200 mg tablet 1.5 tablets (300 mg total) 08/25/2023 Active desvenlafaxine ER (PRISTIQ) 100 mg 24 hr tablet 1 tablet (100 mg total) 08/24/2023 Active metoprolol XL (TOPROL-XL) 50 mg extended release tablet 2 tablets (100 mg total) 08/09/2023 Active zolpidem (AMBIEN) 10 mg tablet 08/24/2023 Active cyclobenzaprine (FLEXERIL) 5 mg tablet 08/11/2023 Active leflunomide (ARAVA) 20 mg tabletIndicatio ns:autoimmune disease Take 1 tablet (20 mg total) by mouth daily 30 tablet 1 10/28/2023 Active diazePAM (VALIUM) 2 mg tablet 05/30/2024 Active meloxicam (MOBIC) 15 mg tablet Take one tablet every day x 7 days then take one tablet every day PRN pain, Take with food 20 tablet 07/07/2024 Active Active Problems Problem Noted Date Diagnosed Date High risk medication use 12/28/2023 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 Severe OA at left 2nd and 3rd DIP joints, moderate severity at left 4th and 5th DIP joints and right 2nd-3rd DIP joints/1st CMC joint. Mild OA changes at left 1st CMC joint and remaining bilateral IP joints and may of the MCP joints bilaterally. No erosions to suggest inflammatory arthritis. US left hand/wrist (10/27/23): Grade 1 effusion and grade 2 power doppler in the wrist. Grade 2 power doppler in the 2nd PIP joint. Additional views of the DIP joints reveal joint space narrowing throughout with grade 2 power doppler in the 4th and 5th DIP joints and grade 1 power doppler in the 2nd DIP joint. Grade 1 power doppler in the ulnar styloid, volar wrist, and flexor tendon of the 3rd metacarpal. Grade 1 effusion in the 5th PIP joint. Very mild synovial thickening in the 2nd MCP and 2nd and 3rd PIP joints. Assessment & Plan (10/28/2023 4:46 PM ENAMEL SPRAYER): Ms. Olivarez is a 47yo female with PMH of HTN, bipolar w/depression, anxiety and cataracts who presented at last visit for second opinion on her previous RA diagnosis. She was seeing Dr. Caraballo who had tried her on MTX (s/e) and simponi aria infusions (no benefit). She was prescribed Celebrex but did not start this yet tries to avoid OTC medications as does not feel these are necessary. Reports the thenar eminences and distal joints of her hands cause pain. Appreciate swelling of the PIP joint sparing the MCP and PIP joints of bilateral hands. No significant a.m. joint stiffness present and no chronic low back pain or stiffness. Is having left- sided hip pain affecting her ability to sleep. Additional symptoms include dry eyes, Raynaud's phenomenon and fatigue. No contributory FH. Recent serologies on AVISE testing were negative for autoantibodies. Radiographic imaging of the bilateral hands revealed mild to severe OA changes (severe at DIP joints) without erosions. A left hand/wrist ultrasound demonstrated moderate inflammatory changes throughout the wrist, MCP and IP joints. On exam she continues to have fullness in several PIP and DIP joints. Based on the work up she appears to have a peripheral spondyloarthritis. As she felt no benefit with MTX would consider either LEF vs SSZ. Recommend initiating treatment with leflunomide 20 mg po daily. Reviewed potential adverse effects including diarrhea, nausea, and hair loss. Warned to watch for development of any rash and to stop taking and call should this occur. Reviewed need for routine lab monitoring throughout the duration of taking this medication, initially monthly and then quarterly as long as they remain on the medication. She was amenable with the plan and provided with a handout for further information. She may start celebrex at this time to see if this offers any reduction in her pain. Also recommend trying a thumb spica splint to see if this would reduce her thenar eminence pain. Plan for follow up in 4 weeks to reassess or sooner as needed. Seen with Dr. Rush. Assessment & Plan (08/31/2023 4:41 PM ENAMEL SPRAYER): Ms. Olivarez is a 47yo female with PMH of HTN, bipolar w/depression, anxiety and cataracts who presents for second opinion on her previous RA diagnosis. She was seeing Dr. Caraballo who had tried her on MTX (s/e) and simponi aria infusions (no benefit). She was prescribed Celebrex but did not start this yet tries to avoid OTC medications as does not feel these are necessary. Reports the thenar eminences and distal joints of her hands cause pain. Appreciate swelling of the PIP joint sparing the MCP and PIP joints of bilateral hands. No significant a.m. joint stiffness present and no chronic low back pain or stiffness. Is having left-sided hip pain affecting her ability to sleep. Additional symptoms include dry eyes, Raynaud's phenomenon and fatigue. No contributory FH. Questionable fullness left hand 2nd PIP joint and right hand 4th PIP joint as well as a few DIP joints although there are Heberden nodes present. Bilateral thenar eminences are enlarged and tender on exam with pain on abduction of thumb. Based on joint distribution she does not appear to have rheumatoid arthritis this time. Given her age and enlargement of the DIP joints would question psoriatic arthritis/spondyloarthritis. Will request initial workup by Dr. Caraballo as he reportedly performed a hand ultrasound. Recommend trial of voltaren gel on her DIP joints. Will get repeat hand x-rays, serologies and the left hand/wrist ultrasound (including all PIP/DIP joints) to re-evaluate her symptoms. To discuss workup at next visit in [address] Rush. Surgical History Surgery Date Site/Laterality Comments APPENDECTOMY CHOLECYSTECTOMY PARTIAL HYSTERECTOMY KNEE SURGERY Social History Tobacco Use Types Packs/Day Years Used Date Smoking Tobacco: Former Cigarettes Smokeless Tobacco: Never Tobacco Cessation:Counseling Given: Not Answered Comments Unknown Sex and Gender Information Value Date Recorded Sex Assigned at Not on file Legal Sex Female 11:09 AM CDT Gender Identity Not on file Sexual Orientation Not on file Obstetrics History Last Filed Vital Signs Vital Sign Reading Time Taken Comments Blood Pressure 120/82 10/28/2023 3:19 PM ENAMEL SPRAYER Pulse 95 10/28/2023 3:19 PM ENAMEL SPRAYER Temperature - - Respiratory Rate - - Oxygen Saturation 94% 10/28/2023 3:19 PM ENAMEL SPRAYER Inhaled Oxygen Concentration - - Weight 83.9 kg (185 lb) 07/07/2024 2:11 PM CDT Height 167.6 cm (5' 6 ) 07/07/2024 2:11 PM CDT Body Mass Index 29.86 07/07/2024 2:11 PM CDT Plan of Treatment Health Maintenance Due Date Last Done Comments Breast Cancer Screening-Mammogram 1975 Cervical Cancer Screening 1975 Colon Cancer Screening-Colonoscopy 1975 Depression Screening 1975 Hepatitis C Screening 1975 DTaP/Tdap/Td Vaccine (1 - Tdap) 1984 Hepatitis B Screening 1991 Regular Well Visit/Exam 18-64 1991 Zoster Vaccine (1 of 2) 2023 Covid-19 Vaccine (3 - 2023-2 5 season) 2024 04/11/2021, 03/21/2021 Influenza Vaccine (#1) 2024 Pneumococcal vaccine <65 Aged Out No longer eligible based on patient's age to complete this topic Insurance [employer] [facility] [employer] OOS [employer] OOS BLUE ACC CHOICE OOS Care Teams Load Test Mechanic Relationship Specialty Start Date End Date Violeta William NP [address] [place] [address] [address] PCP - General Nurse Practitioner 07/30/23 Satish Rush MD [address] [place] [address] Consulting Physician Rheumatology 07/30/23
--- OUTSIDE RECORDS SUMMARY | 2024-11-15 12:39 | XMS_ITS | Referral Summary ---
Author Organization [facility] [address] [facility] [address] Address [address] [place] [address] Care Team Providers Care Health Services Administrator Name Role Phone Violeta William NP Primary Care Provider + Satish Rush MD Unavailable [phone] Allergies No known active allergies Medications QUEtiapine [...] joints. Assessment & Plan (10/28/2023 4:46 PM SAUSAGE CANNER): Ms. Olivarez is a 47yo female with [...] Rush. Assessment & Plan (08/31/2023 4:41 PM SAUSAGE CANNER): Ms. Olivarez is a 47yo female with [...] in [address] Rush. Social History Tobacco Use Types Packs/Day Years Used Date Smoking Tobacco: Former Cigarettes Smokeless Tobacco: Never Tobacco Cessation:Counseling Given: Not Answered Comments Unknown Sex and Gender Information Value Date Recorded Sex Assigned at Not on file Legal Sex Female 11:09 AM CDT Gender Identity Not on file Sexual Orientation Not on file Last Filed Vital Signs Vital Sign Reading Time Taken Comments Blood Pressure 120/82 10/28/2023 3:19 PM SAUSAGE CANNER Pulse 95 10/28/2023 3:19 PM SAUSAGE CANNER Temperature - - Respiratory Rate - - Oxygen Saturation 94% 10/28/2023 3:19 PM SAUSAGE CANNER Inhaled Oxygen Concentration - - Weight 83.9 kg (185 lb) 07/07/2024 2:11 PM CDT Height 167.6 cm (5' 6 ) 07/07/2024 2:11 PM CDT Body Mass Index 29.86 07/07/2024 2:11 PM CDT Plan of Treatment Not on file Insurance [facility] BLUE ACC CHOICE [employer] [facility] CHOICE [employer] [facility] CHOICE OOS Care Teams Health Services Administrator Relationship Specialty Start Date End Date Violeta William NP [facility] [address] [address] PCP - General Nurse Practitioner 07/30/23 Satish Rush MD [address] [place] [address] Consulting Physician Rheumatology 07/30/23
--- OUTSIDE RECORDS SUMMARY | 2024-11-15 12:39 | XMS_ITS | Patient Health Record ---
Author Organization [facility] [employer] [facility] Address [address] [facility] [address] [place] [address] Care Team Providers Care Cs Associate Name Role Phone Dara Choi Primary Care Provider Unavailab Torres Lau Unavailable [phone] Migration, Provider Unavailable Unavailable Reason For Referral No Information Medications Medication SIG (Take, Route, Frequency, Duration) Notes Start Date End Date Status Cephalexin 500 MG Oral Ac tive TRANSDERM-SCOP 1 MG OVER 3 DAYS TRANSDERMAL PATCH *Reorder from [employer] for eRx and Interaction Alerts* Active lamoTRIgine 200 MG Oral A ctive QUEtiapine Fumarate 300 MG Oral Active Azithromycin 250 MG Oral Active GaviLyte-G 236 GM Oral *Reorder from [employer] for eRx and Interaction Alerts* Active Zolpidem Tartrate 10 MG Oral Active QUEtiapine Fumarate 100 MG Oral Active Clindamycin HCl 300 MG Oral Active Metoprolol Succinate ER 50 MG Oral Active Desvenlafaxine ER 100 mg Oral Active Social History Sex Assigned At : Social History Observation Description Sex Assigned At Female Encounters Encounter Location Date Provider Diagnosis [facility] [employer] [facility] [address] [facility] [address] [place] [address] 02/12/2024 Provider Migration [facility] [employer] [address] [facility] [address] [place] [address] 02/13/2024 Provider Migration Plan Of Treatment No Information
--- OUTSIDE RECORDS SUMMARY | 2024-11-15 12:40 | XMS_ITS | Clinical Summary ---
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 Gender Identity Not on file Sexual Orientation Not on file Plan of Treatment Health Maintenance Due Date Last Done Comments Hepatitis C Virus (HCV) Screening 1975 TdaP Immunization 1973 Hepatitis B Immunization (1 of 3 - 19+ 3-dose series) 1992 Pap Smear 1994 Cervical Cancer Screening (CCS) 2003 HPV/Cotest 2003 Colonoscopy 2018 Colorectal Cancer Screening 2018 Cologuard 2023 Immunochemical Fecal Occult Blood 2023 Mammogram 2023 Pneumococcal Immunization (5 0+ years) (1 of 1 - PCV) 2023 Zoster Immunization (1 of 2) 2023 Influenza Immunization (#1) 2024 SARS-COV-2 Immunization ( season) 2024 Respiratory Syncytial Virus (RSV) Immunization (Adult) (1 - 1-dose 75+ series) 2048 Meningococcal Immunization (ACWY) Aged Out No longer eligible based on patient's age to complete this topic Pneumococcal Immunization Combined Aged Out No longer eligible based on patient's age to complete this topic Rotavirus Immunization Aged Out No lo nger eligible based on patient's age to complete this topic Insurance [employer] on file
[2024-11-15 19:57] LABS: Add Urine Microscopic? NO; Appearance Urine Clear (Clear); Bilirubin Urine Negative (Negative); Blood Urine Negative (Negative); Color Urine Yellow (Yellow); Glucose Urine UA Negative (Negative); Ketones Urine Negative (Negative); Leukocyte Esterase Ur Negative LEU/UL (Negative); Nitrate Urine Negative (Negative); Protein Urine Negative (Negative); Specific Grav Ur 1.022 (1.001-1.035); Urobilinogen Urine 0.2 mg/dL (<2.0)
[2024-11-15 20:52] LABS: Immunoglobulin A 86 mg/dL (70-400); Rheumatoid Factor < 12.0 IU/ML (<12)
[2024-11-15 21:18] LABS: Hepatitis B Surface Antigen Negative (Negative)
[2024-11-15 21:23] LABS: Basophils Absolute Auto 0.1 K/mm3 (0.0-0.1); Basophils Percent Auto 0.9 % (0.2-1.2); Eosinophils Absolute Auto 0.1 K/mm3 (0-0.3); Eosinophils Percent Auto 2.4 % (0-4.4); Hematocrit 43.4 % (37.0-47.0); Hemoglobin 14.6 g/dL (12.0-15.0); Immature Granulocyte Absolute 0.01 K/mm3 (0.00-0.031); Immature Granulocyte Percent A 0.2 % (0-0.5); Lymphocytes Absolute Auto 1.59 K/mm3 (0.9-3.2); Lymphocytes Percent Auto 28.8 % (18.3-44.2); Mean Corpuscular HGB Conc 33.6 g/dl (32-36); Mean Corpuscular Hemoglobin 31.4 pg (26-34); Mean Corpuscular Volume 93.3 fl (80-100); Mean Platelet Volume 11.7 fl (7.4-10.4); Monocytes Absolute Auto 0.3 K/mm3 (0.1-0.6); Monocytes Percent Auto 5.8 % (2.6-8.5); Neutrophils Absolute Auto 3.4 K/mm3 (1.3-6.7); Neutrophils Percent Auto 61.9 % (45.5-73.1); Platelet Count Result 210 k/mm3 (150-375); Red Blood Count 4.65 M/mm3 (4.2-5.4); Red Cell Distribution Width 12.2 % (11.5-14.5); White Blood Count 5.5 K/mm3 (4.5-10.0)
[2024-11-15 21:24] LABS: HAV RESULT Negative (Negative); Hepatitis B Core IgM Result Negative (Negative)
[2024-11-15 21:37] LABS: Hepatitis B Surface Anti Res Positive; Hepatitis C Virus Antibody Negative (Negative)
[2024-11-15 21:48] LABS: Erythrocyte Sedimentation Rate 5 mm/hr (0-20)
[2024-11-15 23:04] LABS: Alanine Aminotransferase 24 U/L (6-35); Albumin Level 4.4 g/dL (3.5-5.1); Alkaline Phosphatase 71 U/L (38-126); Anion Gap 10 mmol/L (4-12); Aspartate Amino Transferase 46 U/L (14-36); Bilirubin,Total 0.6 mg/dL (0.2-1.3); Blood Urea Nitrogen 19 mg/dL (7-17); CRP < 0.5 mg/dL (<1.0); Calcium 9.5 mg/dL (8.4-10.2); Carbon Dioxide 24 mmol/L (22-30); Chloride 104 mmol/L (98-107); Estimated Glomerular Filt Rate > 60; Glucose 106 mg/dL (65-110); Potassium 4.3 mmol/L (3.4-5.0); Sodium 138 mmol/L (137-145); Uric Acid 4.3 mg/dL (2.5-7.5)
[2024-11-16 14:28] LABS: Cyclic Citrullinated Peptide <16 UNITS
[2024-11-18 13:07] LABS: NIL 0.03 IU/mL; Quantiferon TB Plus, 1T NEGATIVE (NEGATIVE); TB1-NIL 0.01 IU/mL
== END 2024-11-15 12:37 | disposition home or self-care (01) ==
LOC: ANHGOSHLAB 12:37
PROVIDERS: PCP Nurse Practitioner Family; Visit Provider Internal Medicine
DX: M06.9 Rheumatoid arthritis, unspecified (principal); M13.0 Polyarthritis, unspecified
CPT/HCPCS: 36415; 80053; 80074; 81003; 82784; 84443; 84550; 85025; 85652; 86038; 86039; 86140; 86200; 86430; 86480; 86706

== ENCOUNTER 2024-11-15 13:07 | Outpatient (CLI) | payer BC, SELFPAY ==
--- NOTE | ~2024-11-15 | XR_ITS ---
EXAMINATION: XR_CERV2-3V_CR DATE: 11/15/2024 13:47 INDICATION: Polyarthritis. TECHNIQUE: 3 views of cervical spine were obtained. COMPARISON: None. FINDINGS: There is 6 degrees dextrocurvature of cervical spine. Vertebral body heights are normal. Th ere is mildly decreased disc height at C5-C6 and moderately decreased disc height at C6-C7. There is multilevel facet joint osteoarthritis, severe in lower cervical spine. There is mild central canal st enosis at C5-C6 and C6-C7. No prevertebral soft tissue swelling. IMPRESSION: 1. Moderate cervical spondylosis. Reviewed, dictated and finalized at location A. UCTION FINISHER
--- NOTE | ~2024-11-15 | XR_ITS ---
EXAMINATION: XR hand LT 2V DATE: 11/15/2024 13:47 INDICATION: Polyarthritis. TECHNIQUE: 2 views of left hand were obtained. COMPARISON: Left hand radiographs 10/27/2023 FINDINGS: Alignment is normal. No fracture. There is mild osteoarthritis of first carpometacarpal mahi nt and some of the metacarpophalangeal joints and interphalangeal joints. There is severe osteoarthri tis of second and third distal interphalangeal joints. IMPRESSION: 1. Polyarticular osteoarthritis with interval worsening at second and third distal interphalangeal terence ints. Reviewed, dictated and finalized at location A. F RESERVOIR ENGINEERING IMPRESSION: 1. Polyarticular osteoarthritis with interval worsening at second and third dis umm interphalangeal joints.
--- NOTE | ~2024-11-15 | XR_ITS ---
EXAMINATION: XR hip BI wo pelvis DATE: 11/15/2024 13:47 INDICATION: Polyarthritis. TECHNIQUE: 2 views of right hip and 2 views of left hip were obtained. COMPARISON: None. FINDINGS: Alignment is normal. No fracture. There is mild osteoarthritis of the hips. IMPRESSION: 1. Mild osteoarthritis of the hips. Reviewed, dictated and finalized at location A. T ASSISTANT
--- NOTE | ~2024-11-15 | XR_ITS ---
EXAMINATION: XR foot LT 2V DATE: 11/15/2024 13:47 INDICATION: Polyarthritis. TECHNIQUE: 2 views of left foot were obtained. COMPARISON: None. FINDINGS: Alignment is normal. No acute fracture. There is internal fixation of distal tibia and fibu la. There is mild osteoarthritis of first metatarsophalangeal joint and some of the midfoot joints an d interphalangeal joints. There are enthesophytes at the posterior and plantar aspects of calcaneal t uberosity. IMPRESSION: 1. Mild polyarticular osteoarthritis. Reviewed, dictated and finalized at location A. E SPECIALIST
--- NOTE | ~2024-11-15 | XR_ITS ---
EXAMINATION: XR foot RT 2V DATE: 11/15/2024 13:47 INDICATION: Polyarthritis. TECHNIQUE: 2 views of right foot were obtained. COMPARISON: None. FINDINGS: Alignment is normal. No fracture. There is mild osteoarthritis of talonavicular joint. Ther e are enthesophytes at the posterior and plantar aspects of calcaneal tuberosity. IMPRESSION: 1. Mild osteoarthritis of talonavicular joint. Reviewed, dictated and finalized at location A. F DIGITAL OFFICER
--- NOTE | ~2024-11-15 | XR_ITS ---
EXAMINATION: XR hand RT 2V DATE: 11/15/2024 13:47 INDICATION: Polyarthritis. TECHNIQUE: 2 views of right hand were obtained. COMPARISON: Right hand radiographs 10/27/2023 FINDINGS: Alignment is normal. No fracture. There is severe osteoarthritis of first carpometacarpal j oint and mild osteoarthritis of some of the the interphalangeal joints and metacarpophalangeal joints . There is moderate osteoarthritis of second and third distal interphalangeal joints. IMPRESSION: 1. Stable polyarticular osteoarthritis. Reviewed, dictated and finalized at location A. TER CHECKER
== END 2024-11-15 13:08 | disposition home or self-care (01) ==
PROVIDERS: PCP Internal Medicine; Visit Provider Internal Medicine
DX: M06.9 Rheumatoid arthritis, unspecified (principal); M19.041 Primary osteoarthritis, right hand; M19.042 Primary osteoarthritis, left hand; M47.892 Other spondylosis, cervical region; M19.071 Primary osteoarthritis, right ankle and foot; M19.072 Primary osteoarthritis, left ankle and foot; M16.0 Bilateral primary osteoarthritis of hip
CPT/HCPCS: 72040; 73120; 73521; 73620

== ENCOUNTER 2024-11-30 09:25 | Outpatient (CLI) | payer BC, SELFPAY ==
--- NOTE | 2024-11-30 12:00 | NEURO_ITS ---
Clinical note: The patient is 49-year-old with history of paresthesias in both hands. On brief neurologic examination no focal muscle wasting or fasciculations were seen. The results of the EMG nerve can study are given below. There is no history of diabetes mellitus or recent major trauma. Summary of findings: 1. Left and right median motor distal latency amplitude and conduction velocity within normal limits. 2. Left and right ulnar motor distal latencies and amplitudes within normal limits however there is a mild focal slowing across both elbows. Right ulnar inching study also shows evidence of focal slowing across the elbow. 3. Left and right median and ulnar motor distal latencies over 2nd lumbrical and 2nd interossei were comparable. 4. Left and right median and ulnar palmar and digital and radial sensory distal latencies amplitudes and conduction velocities were within acceptable normal limits. 5. EMG examination was performed using a monopolar needle electrode wears various muscles in C5-T1 distribution examine both upper limbs. No denervation changes were seen. Motor unit amplitude and duration and recruitment pattern were within acceptable normal limits. Impression: EMG and nerve conduction study of both upper limbs are supportive of diagnosis of mild bilateral ulnar neuropathy at elbow. No denervation changes were seen in ulnar distribution in forearm or hand at this time. Remainder of the findings considered within acceptable normal limits. Gaby Rivera MD,FAAN, FAANEM Neurologist Nerve Conduction Studies Motor Nerve Results ? Latency Amplitude F-Lat Segment Distance CV Comment Site (ms) (mV) (ms) (cm) (m/s) Left Med/Ulnar(Lum-INT) Motor ? Median (Lumb I) Wrist 2.7 3.2 ? Ulnar (Dorsal Interossei IV) Wrist 2.8 4.6 Right Med/Ulnar(Lum-INT) Motor ? Median (Lumb I) Wrist 2.8 1.77 ? Ulnar (Dorsal Interossei IV) Wrist 3.0 3.3 Left Median (APB) Motor Wrist 3.3 12.4 Elbow 7.0 12.2 Elbow-Wrist 200 54 Right Median (APB) Motor Wrist 3.1 9.0 Elbow 6.9 8.9 Elbow-Wrist 190 50 Left Ulnar (ADM) Motor Wrist 2.5 8.7 Bel Elbow 5.9 8.5 Bel Elbow-Wrist 185 54 Abv Elbow 7.5 7.6 Abv Elbow-Bel Elbow 70 44 Right Ulnar (ADM) Motor Wrist 3.1 7.2 Bel Elbow 6.7 5.8 Bel Elbow-Wrist 180 50 Abv Elbow 8.3 5.8 Abv Elbow-Bel Elbow 65 41 Left Ulnar-Inching (ADM) Motor Wrist 2.5 8.7 Right Ulnar-Inching (ADM) Motor Wrist 3.1 7.2 Elb-6 6.0 6.6 Elb-5 7.0 6.2 Elb-5-Elb-6 20 20 Elb-4 8.0 5.6 Elb-4-Elb-5 20 20 Elb-3 8.5 5.9 Elb-3-Elb-4 20 40 Elb-2 8.8 5.9 Elb-2-Elb-3 20 67 Sensory Nerve Results ? Latency (Peak) Amplitude (P-P) Segment Distance CV Comment Site (ms) (?V) (cm) (m/s) Left Median DigIII Sensory Wrist-Dig III 3.1 45 Wrist-Dig III 140 45 Right Median DigIII Sensory Wrist-Dig III 3.2 49 Wrist-Dig III 135 42 Left Median-Ulnar Palmar Sensory ? Median Palm-Wrist 1.80 99 Palm-Wrist 80 44 ? Ulnar Palm-Wrist 1.80 18 Palm-Wrist 80 44 Right Median-Ulnar Palmar Sensory ? Median Palm-Wrist 2.1 90 Palm-Wrist 80 38 ? Ulnar Palm-Wrist 1.85 20 Palm-Wrist 80 43 Left Radial Sensory Forearm-Wrist 1.95 30 Forearm-Wrist 100 51 Right Radial Sensory Forearm-Wrist 2.1 41 Forearm-Wrist 100 48 Left Ulnar Sensory Wrist-Dig V 3.2 28 Wrist-Dig V 135 42 Right Ulnar Sensory Wrist-Dig V 3.2 39 Wrist-Dig V 140 44 Electromyography ?Side Muscle Nerve Ins Act Fibs Psw Amp Dur Recrt Comment Right Deltoid Axillary Nml Nml Nml Nml Nml Nml Right Triceps Radial Nml Nml Nml Nml Nml Nml Right Ext Digitorum Radial (Post Int) Nml Nml Nml Nml Nml Nml Right ExtCarUln Radial (Post Int) Nml Nml Nml Nml Nml Nml Right Ext Indicis Radial (Post Int) Nml Nml Nml Nml Nml Nml Right FlexPolLong Median (Ant Int) Nml Nml Nml Nml Nml Nml Right 1stDorInt Ulnar Nml Nml Nml Nml Nml Nml Right Abd Poll Brev Median Nml Nml Nml Nml Nml Nml Right FlexDigProf Ulnar Nml Nml Nml Nml Nml Nml Right FlexCarRad Median Nml Nml Nml Nml Nml Nml Left Deltoid Axillary Nml Nml Nml Nml Nml Nml Left Triceps Radial Nml Nml Nml Nml Nml Nml Left ExtCarUln Radial (Post Int) Nml Nml Nml Nml Nml Nml Left FlexPolLong Median (Ant Int) Nml Nml Nml Nml Nml Nml Left 1stDorInt Ulnar Nml Nml Nml Nml Nml Nml Left Abd Poll Brev Median Nml Nml Nml Nml Nml Nml Left FlexDigProf Ulnar Nml Nml Nml Nml Nml Nml MTDD
== END 2024-11-30 09:26 | disposition home or self-care (01) ==
LOC: ANHNEURO 09:28
PROVIDERS: PCP Family Medicine; Visit Provider Psychiatry & Neurology Neurology
DX: E11.9 Type 2 diabetes mellitus without complications (principal)
CPT/HCPCS: 95886; 95912

== ENCOUNTER 2025-03-26 07:26 | Outpatient (CLI) | payer BC, SELFPAY ==
--- NOTE | ~2025-03-26 | NM_ITS ---
EXAMINATION: NM esmer stress w perfusion DATE: 03/26/2025 12:21 INDICATION: Chest pain TECHNIQUE: Rest images were obtained following intravenous administration of 10.6 mCi Tc99m tetrofosm in (Myoview). The patient was infused intravenously with Lexiscan (Regadenoson). Then, 34.4 mCi Tc99m tetrofosmin (Myoview) was administered intravenously, and stress images were obtained, initially in the supine position with repeat post stress images obtained in the prone position. Data was reconstru cted into short axis and horizontal and vertical long axis SPECT images. Gated SPECT images were also obtained. COMPARISON: None. FINDINGS: There is a moderate severity fixed perfusion defect involving the apical, apical anterior, apical septal, mid anteroseptal and mid inferoseptal segments. There is likely diaphragmatic attenuat ion artifact along the mid anterior segment which normalizes on the prone post stress imaging. There is no reversible ischemia. There is normal left ventricular chamber size, wall motion and ejection fr action. Left ventricular ejection fraction measures 70%. IMPRESSION: 1. Moderate-sized moderate severity nonreversible infarct involving the apical, apical anterior, apic al septal, mid anteroseptal and mid inferoseptal segment. No reversible ischemia. 2. Left ventricular ejection fraction measuring 70%. Reviewed, dictated and finalized at location B. IMPRESSION: 1. Moderate-sized moderate severity nonreversible infarct involving the apical, apical anterior, apical septal, mid anteroseptal and mid inferoseptal segment. No reversible ischemia. 2. Left ventricular ejection fraction measuring 70%.
--- NOTE | 2025-03-26 07:59 | EST_ITS ---
Patient Info Name: Odette Membreno Age: 49 years : 1975 Gender: Female Ht: 66 in Wt: 170 lbs BSA: 1.91 m2 HR: 71 bpm BP: 124 / 80 mmHg Exam Date: 03/26/2025 7:59 AM Patient Status: O Admit Date: 03/26/2025 Exam Type: CA stress esmer w NM A regadenoson stress test was performed. Staff Referring Physician: Fred Spring DO Attending Provider: Fred Spring DO Exercise Technologist: Celena Trevino Exercise Physician: Fred Spring DO Summary 1. 1. Inconclusive lexiscan stress test for ischemic ST changes by ECG criteria due to baseline LBBB. 2. 2. Stable hemodynamics throughout the test. 3. 3. Nuclear scan to follow and will be reported separately. Please correlate with it. 4. 4. Patient informed of the above results. Protocol: Lexiscan Stress ECG Details Stage: REST Duration (min): 0 min : 54 sec HR (bpm): 72 SBP (mmHg): 124 DBP (mmHg): 80 Stage: REST Duration (min): 5 min : 32 sec HR (bpm): 76 SBP (mmHg): 124 DBP (mmHg): 80 Stage: STAGE 1 Duration (min): 1 min : 0 sec HR (bpm): 86 SBP (mmHg): 136 DBP (mmHg): 84 Stage: RECOVERY Duration (min): 1 min : 0 sec HR (bpm): 113 SBP (mmHg): 136 DBP (mmHg): 84 Stage: RECOVERY Duration (min): 2 min : 0 sec HR (bpm): 117 SBP (mmHg): 136 DBP (mmHg): 84 Stage: RECOVERY Duration (min): 3 min : 0 sec HR (bpm): 108 SBP (mmHg): 136 DBP (mmHg): 84 Stage: RECOVERY Duration (min): 4 min : 0 sec HR (bpm): 97 SBP (mmHg): 140 DBP (mmHg): 95 Stage: RECOVERY Duration (min): 5 min : 0 sec HR (bpm): 103 SBP (mmHg): 125 DBP (mmHg): 93 Stage: RECOVERY Duration (min): 5 min : 46 sec HR (bpm): 91 SBP (mmHg): 125 DBP (mmHg): 93 Rest HR: 76 bpm Peak HR: 117 bpm Rest Sys BP: 124 mmHg Peak Sys BP: 140 mmHg Max Pred HR: 169 bpm % Max Pred HR: 69 % Target HR: 144 bpm Max RPP: 16,380 bpm*mmHg Termination Reason: Completed protocol Cardiac Symptoms: Shortness of breath, Warmth Total Time: 1 min : 0 sec Rest Jackson BP: 80 mmHg Peak Jackson BP: 95 mmHg Total Dose: 0.4 mg Resting ECG Sinus rhythm, LBBB. Stress ECG No ST changes. Arrhythmias None. Report Signatures
--- NOTE | 2025-03-26 07:59 | ECHO_ITS ---
Patient Info Name: Odette Membreno Age: 49 years : 1975 Gender: Female Ht: 66 in Wt: 170 lbs BSA: 1.91 m2 BP: 121 / 83 mmHg Technical Quality: Good Exam Date: 03/26/2025 8:04 AM Patient Status: O Admit Date: 03/26/2025 Exam Type: CA echo doppler color flow Complete two-dimensional, color flow and Doppler transthoracic echocardiogram is performed. Staff Referring Physician: Fred Spring DO Counter Top Maker: Angelica Ornelas Attending Provider: Fred Spring DO Summary 1. Complete two-dimensional, color flow and Doppler transthoracic echocardiogram is performed. 2. Left ventricular chamber dimension is normal. 3. Left ventricular systolic function is normal, estimated at 60-65. 4. The left ventricular diastolic function is grade I diastolic dysfunction. 5. E/e' 16 is elevated. 6. Left atrial chamber dimension is mildly enlarged. 7. No pulmonary hypertension, estimated pulmonary arterial systolic pressure is 31 mmHg. Left Ventricle E/e' 16 is elevated. Left ventricular chamber dimension is normal. Left ventricular systolic function is normal, estimated at 60-65. The left ventricular diastolic function is grade I diastolic dysfunction. Right Ventricle Right ventricular chamber dimension is normal. Right ventricular systolic function is normal and with normal TAPSE 2.1 cm. Left Atria Left atrial chamber dimension is mildly enlarged. Right Atria Right atrial chamber dimension is normal. Aortic Valve The aortic valve is trileaflet. There is no aortic valve stenosis. There is no aortic valve regurgitation. Pulmonic Valve There is no pulmonic regurgitation. Mitral Valve There is no mitral valve stenosis. There is no mitral valve regurgitation. Tricuspid Valve There is no tricuspid valve regurgitation. No pulmonary hypertension, estimated pulmonary arterial systolic pressure is 31 mmHg. Pericardium/Pleural There is no pericardial effusion. Inferior Vena Cava Normal inferior vena cava with >50% collapse upon inspiration consistent with normal right atrial pressure, 5 mmHg. Aorta The aortic root size at the sinus of Valsalva is normal. Left Ventricular Outflow Tract Name Value Normal LVOT 2D LVOT Diameter 1.9 cm LVOT Doppler LVOT Peak Velocity 119 cm/s LVOT Peak Gradient 6 mmHg LVOT Mean Gradient 4 mmHg LVOT VTI 25 cm LVOT VTI/AV VTI Ratio 1.0 LVOT Stroke Volume 71 ml LVOT CO 5.2 l/min LVOT CI 2.8 l/min/m2 Pulmonic Valve Name Value Normal RVOT Doppler RVOT Peak Velocity 84 cm/s RVOT Peak Gradient 3 mmHg PV Doppler PV Peak Velocity 163 cm/s PV Peak Gradient 11 mmHg Mitral Valve Name Value Normal MV Diastolic Function MV E Peak Velocity 77 cm/s MV A Peak Velocity 113 cm/s MV E/A 0.7 MV Decel Time (PW) 170 ms Tricuspid Valve Name Value Normal TV Regurgitation Doppler TR Peak Velocity 255 cm/s TR Peak Gradient 26 mmHg Estimated PAP/RSVP RA Pressure 5 mmHg <=5 PA Systolic Pressure 31 mmHg <36 RV Systolic Pressure 31 mmHg <36 TV Annular TDI TV Lateral Casandra s' Velocity 11.3 cm/s >=9.5 Aorta Name Value Normal Ascending Aorta Ao Root Diameter (MM) 2.7 cm Ao Root Diam Index (MM) 1.4 cm/m2 Aortic Valve Name Value Normal AV Doppler AV Peak Velocity 134 cm/s AV Peak Gradient 7 mmHg AV Mean Gradient 4 mmHg AV VTI 25 cm AV Area (Cont Eq VTI) 2.8 cm2 >=3.0 AV Area (Cont Eq Jake) 2.6 cm2 AV DI (Jake) 0.89 AV Regurgitation 2D LVOT Area 2.9 cm2 Ventricles Name Value Normal LV Dimensions 2D/MM IVS Diastolic Thickness (2D) 0.7 cm 0.6-1.0 IVS Diastole Thickness (MM) 0.7 cm 0.6-0.9 LVID Diastole (2D) 4.7 cm 3.8-5.2 LVID Diastole (MM) 4.6 cm 3.8-5.2 LVIW Diastolic Thickness (2D) 0.6 cm 0.6-0.9 LVIW Diastolic Thickness (MM) 0.7 cm 0.6-0.9 LVID Systole (2D) 3.0 cm 2.2-3.5 LVID Systole (MM) 3.0 cm 2.2-3.5 LVOT Diameter 1.9 cm LV Mass (2D Cubed) 95.62 g 67.00-162.00 LV Mass Index (2D Cubed) 50 g/m2 43-95 Relative Wall Thickness (2D) 0.24 <=0.42 LV Mass (MM Cubed) 104.67 g 67.00-162.00 LV Mass Index (MM Cubed) 55 g/m2 43-95 Relative Wall Thickness (MM) 0.30 LV Fractional Shortening/Ejection Fraction 2D/MM LV Fractional Shortening (2D) 36 % 27-45 LV Fractional Shortening (MM) 36 % 27-45 LV EF (MM Teichholz) 66 % LV EF (2D Teichholz) 65 % LV Diastolic Volume (4C MOD) 77 ml LV EF (4C MOD) 53 % LV Diastolic Volume (2C MOD) 74 ml LV EF (2C MOD) 52 % LV Diastolic Volume (BP MOD) 74 ml 46-106 LV Diastolic Volume Index (BP MOD) 38 ml/m2 29-61 LV Systolic Volume (BP MOD) 35 ml 14-42 LV Systolic Volume Index (BP MOD) 19 ml/m2 8-24 LV EF (BP MOD) 52 % 54-74 LV Diastolic Length (4C) 7.5 cm LV Systolic Length (4C) 7.0 cm LV Stroke Volume (4C MOD) 41 ml Atria Name Value Normal LA Dimensions LA Dimension (MM) 3.7 cm 2.7-3.8 LA Volume (4C A-L) 38 ml LA Volume (BP A-L) 47 ml RA Dimensions RA Systolic Major [place] Length (4C) 3.8 cm 2.2-2.8 RA Area (4C) 8.5 cm2 <=18.0 Report Signatures
== END 2025-03-26 07:27 | disposition home or self-care (01) ==
PROVIDERS: PCP Family Medicine; Visit Provider Internal Medicine Cardiovascular Disease
DX: I51.89 Other ill-defined heart diseases (principal); Z87.74 Personal history of (corrected) congenital malformations of heart and circulatory system
CPT/HCPCS: 78452; 93017; 93306; A9502; J2785

== ENCOUNTER 2025-08-28 09:30 | Outpatient (CLI) | payer BC, SELFPAY ==
--- OUTSIDE RECORDS SUMMARY | 2025-08-28 10:08 | XMS_ITS | Clinical Summary ---
Author Organization 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 Gender Identity Not on file Sexual Orientation Not on file Plan of Treatment Health Maintenance Due Date Last Done Comments Hepatitis C Virus (HCV) Screening 1975 TdaP Immunization 1975 Hepatitis B Immunization (1 of 3 - 19+ 3-dose series) 1992 Pap Smear 1994 Cervical Cancer Screening (CCS) 2003 HPV/Cotest 2003 Cologuard 2018 Colonoscopy 2018 Colorectal Cancer Screening 2018 Immunochemical Fecal Occult Blood 2018 Pneumococcal Immunization (5 0+ years) (1 of 1 - PCV) 2023 Zoster Immunization (1 of 2) 2023 Influenza Immunization (#1) 2025 SARS-COV-2 Immunization ( season) 2025 Respiratory Syncytial Virus (RSV) Immunization (Adult) (1 - 1-dose 75+ series) 2048 Human Papillomavirus (HPV) Immunization Aged Out No longer eligible b ased on patient's age to complete this topic Meningococcal Immunization (ACWY) Aged Out No longer eligible based on patient's age to complete this topic Rotavirus Immunization Aged Out No lo nger eligible based on patient's age to complete this topic Insurance [employer] on file
--- OUTSIDE RECORDS SUMMARY | 2025-08-28 10:08 | XMS_ITS | Clinical Summary ---
Author Organization [facility] [address] [facility] [facility] Address [address] [place] [address] Care Team Providers Care Offset Printing Operator Name Role Phone Violeta William NP Primary Care Provider + Satish Rush MD Unavailable [phone] Allergies No known active allergies Medications QUEtiapine [...] joints. Assessment & Plan (10/28/2023 4:46 PM LEARNING SUPPORT SERVICES DIRECTOR): Ms. Olivarez is a 47yo female with [...] Rush. Assessment & Plan (08/31/2023 4:41 PM LEARNING SUPPORT SERVICES DIRECTOR): Ms. Olivarez is a 47yo female with [...] Comments Blood Pressure 120/82 10/28/2023 3:19 PM LEARNING SUPPORT SERVICES DIRECTOR Pulse 95 10/28/2023 3:19 PM LEARNING SUPPORT SERVICES DIRECTOR Temperature - - Respiratory Rate - - Oxygen Saturation 94% 10/28/2023 3:19 PM LEARNING SUPPORT SERVICES DIRECTOR Inhaled Oxygen Concentration - - Weight 83.9 kg (185 lb) 07/07/2024 2:11 PM CDT Height 167.6 cm (5' 6) 07/07/2024 2:11 PM CDT Body Mass Index [...] of 2) 2023 Covid-19 Vaccine (3 - 2024-2 6 season) 2025 04/11/2021, 03/21/2021 Influenza Vaccine (#1) 2025 Pneumococcal vaccine <65 Aged Out No longer eligible based on patient's age to complete this topic Insurance [facility] [employer] OOS Care Teams Offset Printing Operator Relationship Specialty Start Date End Date Violeta William NP [address] [place] [address] [address] PCP - General Nurse Practitioner 07/30/23 Satish Rush MD [address] [place] [address] Consulting Physician Rheumatology 07/30/23
[2025-08-28 10:09] LABS: Cholesterol 198 mg/dL (0-200); HDL Direct 62 mg/dL; Triglycerides 72 mg/dL (<150)
== END 2025-08-28 09:31 | disposition home or self-care (01) ==
LOC: ANHLAB 09:31
PROVIDERS: PCP Family Medicine; Visit Provider Internal Medicine Cardiovascular Disease
DX: I10 Essential (primary) hypertension (principal)
CPT/HCPCS: 36415; 80061